=== PATIENT | male | born 1940 | race Two or more races ===

== ENCOUNTER → 2016-07-01 | Outpatient (CLI) | payer MEDICARE, OTHER ==
[~2016-07-01] MED LIST: IOHEXOL 350 MG/ML 100ML IJ ONE; SODIUM CHLORIDE 0.9% 1,000 ML IV ONE
[2016-07-01 10:15] VITALS: BP 138/77
[2016-07-01 11:34] LABS: BUN/Creatinine Ratio 26.7; Calcium 8.6 mg/dL (8.5-10.1); Potassium 4.9 mmol/L (3.5-5.1)
[2016-07-01 12:00] VITALS: BP 137/87
== END | disposition home or self-care (01) ==
LOC: Rad HDHVI 09:44
PROVIDERS: ATTEND Internal Medicine Cardiovascular Disease
DX: I10 Essential (primary) hypertension (principal); E11.9 Type 2 diabetes mellitus without complications
CPT/HCPCS: 36415; 74175; 80048; 83036; 96360; 96366; G0463

== ENCOUNTER → 2016-12-08 | Outpatient (CLI) | payer MEDICARE, OTHER ==
[2016-12-08 12:47] LABS: Albumin 3.4 g/dL (3.4-5.0); BUN/Creatinine Ratio 24.3; Bilirubin, Total 0.4 mg/dL (0.2-1.0); Calcium 9.2 mg/dL (8.5-10.1); Potassium 4.7 mmol/L (3.5-5.1); Total Protein 7.5 g/dL (6.4-8.2); Uric Acid 9.3 mg/dL (3.5-7.2)
== END | disposition home or self-care (01) ==
LOC: LAB 09:00
PROVIDERS: ATTEND Internal Medicine Cardiovascular Disease
DX: I10 Essential (primary) hypertension (principal); M10.9 Gout, unspecified
CPT/HCPCS: 36415; 80053; 84550

== ENCOUNTER → 2017-02-08 | Outpatient (CLI) | payer MEDICARE, OTHER | END | disposition home or self-care (01) | LOC: Rad HDHVI 08:45 | PROVIDERS: ATTEND Internal Medicine Cardiovascular Disease | DX: I42.9 Cardiomyopathy, unspecified (principal); I65.29 Occlusion and stenosis of unspecified carotid artery | CPT/HCPCS: 93306; 93880 ==

== ENCOUNTER → 2017-02-10 | Outpatient (CLI) | payer MEDICARE, OTHER ==
[~2017-02-10] VITALS: Ht 30.5 cm; Wt 0.5 kg
[~2017-02-10] MED LIST changes: +D5W 5% IV SCH; +DIPYRIDAMOLE (5MG/ML) 10 ML VIAL IV ONE; +DIPYRIDAMOLE IV SCH; -IOHEXOL 350 MG/ML 100ML IJ ONE; -SODIUM CHLORIDE 0.9% 1,000 ML IV ONE
[2017-02-10 12:20] LABS: Urine Bilirubin Negative (Negative); Urine Blood Negative /uL (Negative); Urine Color Yellow (Yellow); Urine Glucose Normal (Normal); Urine Ketone Negative (Negative); Urine Nitrite Negative (Negative); Urine Urobilinogen Normal (Negative)
[2017-02-10 12:22] LABS: Basophils # (auto) 0 uL; Basophils % (auto) 0.4 % (0.0-2.0); Eosinophils # (auto) 0.1 uL; Eosinophils % (auto) 0.9 % (0.0-7.0); Hematocrit 40.9 % (41.0-53.0); Lymphocytes # (auto) 1.3 uL; Lymphocytes % (auto) 16.8 % (10.0-50.0); Mean Corpuscular Hemoglobin 32.2 pg (28.0-32.0); Mean Corpuscular Hgb Conc. 34.3 g/dL (32.0-36.0); Mean Corpuscular Volume 93.9 fL (80.0-100.0); Mean Platelet Volume 8.3 fL (6.9-10.8); Monocytes # (auto) 0.7 uL; Monocytes % (auto) 8.8 % (0.0-12.0); Neutrophils # (auto) 5.5 uL; Neutrophils % (auto) 73.1 % (37.0-80.0); Nucleated Red Blood Cells % 0.1 %; Platelet Count (auto) 266 10^3/uL (140-450); Red Cell Distribution Width 15.2 % (11.8-14.3); White Blood Cell 7.5 10^3/uL (4.4-10.8)
[2017-02-10 12:50] LABS: Albumin 3.4 g/dL (3.4-5.0); BUN/Creatinine Ratio 23.3; Bilirubin, Total 0.5 mg/dL (0.2-1.0); Calcium 9.8 mg/dL (8.5-10.1); Potassium 4.4 mmol/L (3.5-5.1); Total Protein 7.3 g/dL (6.4-8.2)
[2017-02-12 14:06] LABS: Free Testosterone(Direct) 9.5 pg/mL (6.6-18.1)
== END | disposition home or self-care (01) ==
LOC: Rad HDHVI 08:14
PROVIDERS: ATTEND Internal Medicine Cardiovascular Disease
DX: I10 Essential (primary) hypertension (principal); E78.00 Pure hypercholesterolemia, unspecified; K74.1 Hepatic sclerosis; E11.9 Type 2 diabetes mellitus without complications; R97.20 Elevated prostate specific antigen [PSA]; R53.81 Other malaise; E03.9 Hypothyroidism, unspecified; D64.9 Anemia, unspecified; N39.0 Urinary tract infection, site not specified; E55.9 Vitamin D deficiency, unspecified
CPT/HCPCS: 36415; 78452; 80053; 80061; 81003; 82306; 82607; 83036; 84402; 84403; 84439; 84443; 85025; 93005; 96374; 96375; A9500; J1245

== ENCOUNTER → 2017-03-01 | Outpatient (CLI) | payer MEDICARE, OTHER | END | disposition home or self-care (01) | LOC: Rad HDHVI 09:28 | PROVIDERS: ATTEND Internal Medicine Cardiovascular Disease | DX: Z13.6 Encounter for screening for cardiovascular disorders (principal); I65.29 Occlusion and stenosis of unspecified carotid artery | CPT/HCPCS: 76775 ==

== ENCOUNTER → 2017-06-06 | Outpatient (CLI) | payer MEDICARE, OTHER ==
[~2017-06-06] MED LIST changes: +AMLO5TAB2 PO; +ASP81EC PO; +ATEN-60 PO; +ATOR40TA52 PO; -D5W 5% IV SCH; -DIPYRIDAMOLE (5MG/ML) 10 ML VIAL IV ONE; -DIPYRIDAMOLE IV SCH; +ENA10T PO; +FENO160T8 PO; +FURO20TA3 PO; +INSU100I2 SC; +LEVEMIR SC; +LIRA18IN2 SUBCUT
== END | disposition home or self-care (01) ==
LOC: Rad HDHVI 08:56
PROVIDERS: ATTEND Internal Medicine Cardiovascular Disease
DX: I65.21 Occlusion and stenosis of right carotid artery (principal); I10 Essential (primary) hypertension
CPT/HCPCS: 93880

== ENCOUNTER → 2017-10-17 | Outpatient (CLI) | payer MEDICARE, OTHER | END | disposition home or self-care (01) | LOC: Rad HDHVI 12:36 | PROVIDERS: ATTEND Internal Medicine Cardiovascular Disease | DX: I70.201 Unspecified atherosclerosis of native arteries of extremities, right leg (principal); I10 Essential (primary) hypertension; E78.5 Hyperlipidemia, unspecified; E11.9 Type 2 diabetes mellitus without complications; E03.9 Hypothyroidism, unspecified | CPT/HCPCS: 93880; 93926 ==

== ENCOUNTER → 2018-08-31 | Outpatient (CLI) | payer MEDICARE, BC ==
[~2018-08-31] MED LIST changes: +AMLO5TAB13 PO; -AMLO5TAB2 PO
== END | disposition home or self-care (01) ==
LOC: Rad HDHVI 09:40
PROVIDERS: ATTEND Internal Medicine Cardiovascular Disease
DX: I10 Essential (primary) hypertension (principal); R06.02 Shortness of breath
CPT/HCPCS: 93306

== ENCOUNTER → 2018-09-12 | Outpatient (CLI) | payer MEDICARE, BC ==
[~2018-09-12] VITALS: Ht 167.6 cm; Wt 104.3 kg
[~2018-09-12] MED LIST changes: +ADENOSINE 88 MG in GIVE UN-DILUTED 0 ML IV ONE; +ADENOSINE 90 MG/30 ML INJ IV ONE
[2018-09-12 12:21] LABS: Basophils # (auto) 0 uL; Basophils % (auto) 0.5 % (0.0-2.0); Eosinophils # (auto) 0.1 uL; Eosinophils % (auto) 1.2 % (0.0-7.0); Hematocrit 39.6 % (41.0-53.0); Hemoglobin 13.5 g/dL (13.5-17.5); Lymphocytes # (auto) 1.1 uL; Lymphocytes % (auto) 16.1 % (10.0-50.0); Mean Corpuscular Volume 94.3 fL (80.0-100.0); Monocytes # (auto) 0.6 uL; Monocytes % (auto) 8.8 % (0.0-12.0); Neutrophils # (auto) 5.1 uL; Neutrophils % (auto) 73.4 % (37.0-80.0); Platelet Count (auto) 283 10^3/uL (140-450); Red Blood Cells 4.21 10^6/uL (4.5-5.90); Red Cell Distribution Width 14.1 % (11.8-14.3); White Blood Cell 6.9 10^3/uL (4.4-10.8)
[2018-09-12 12:30] LABS: Albumin 3.2 g/dL (3.4-5.0); Calcium 8.8 mg/dL (8.5-10.1); Potassium 4.5 mmol/L (3.5-5.1)
[2018-09-12 12:34] LABS: BUN/Creatinine Ratio 20.5; Bilirubin, Total 0.3 mg/dL (0.2-1.0); Total Protein 7.5 g/dL (6.4-8.2)
[2018-09-12 12:40] LABS: Urine Blood Negative /uL (Negative)
[2018-09-12 13:00] LABS: Free T4 (Free Thyroxine) 1.1 ng/dL (0.89-1.76)
== END | disposition home or self-care (01) ==
LOC: Rad HDHVI 07:51
PROVIDERS: ATTEND Internal Medicine
DX: C61 Malignant neoplasm of prostate (principal); E78.5 Hyperlipidemia, unspecified; E03.9 Hypothyroidism, unspecified; E55.9 Vitamin D deficiency, unspecified; E11.9 Type 2 diabetes mellitus without complications; N39.0 Urinary tract infection, site not specified; D51.9 Vitamin B12 deficiency anemia, unspecified; K74.1 Hepatic sclerosis; D64.9 Anemia, unspecified; I10 Essential (primary) hypertension
CPT/HCPCS: 36415; 78452; 80053; 80061; 81003; 82306; 82607; 83036; 84153; 84403; 84439; 84443; 85025; 93005; 96374; 96375; A9500; J0153

== ENCOUNTER → 2018-10-22 | Outpatient (CLI) | payer MEDICARE, BC ==
[~2018-10-22] MED LIST changes: -ADENOSINE 88 MG in GIVE UN-DILUTED 0 ML IV ONE; -ADENOSINE 90 MG/30 ML INJ IV ONE; -AMLO5TAB13 PO; +AMLO5TAB15 PO; +CHOL100029 PO; -ENA10T PO; +ENAL10TA PO
[2018-10-22 09:15] VITALS: BP 141/78
[2018-10-22 09:45] VITALS: BP 140/75
--- NOTE | 2018-10-22 09:45 | NUR ---
Pre-Op Discharge Summary: See e-MAR for any medications given for this visit. Pre-op orders received and carried out per MD of EKG, LABS and prescription for chest xrays given to patient. Patient given a copy of EKG with instructions to go to [facility] out patient for further follow up care.
[2018-10-22 12:01] LABS: Basophils # (auto) 0.1 uL; Basophils % (auto) 1.5 % (0.0-2.0); Eosinophils # (auto) 0 uL; Hematocrit 39.3 % (41.0-53.0); Hemoglobin 13.3 g/dL (13.5-17.5); Lymphocytes % (auto) 19.7 % (10.0-50.0); Mean Corpuscular Hemoglobin 32.4 pg (28.0-32.0); Mean Corpuscular Hgb Conc. 33.8 g/dL (32.0-36.0); Monocytes # (auto) 0.7 uL; Monocytes % (auto) 14.3 % (0.0-12.0); Neutrophils # (auto) 3.1 uL; Neutrophils % (auto) 63.5 % (37.0-80.0); Platelet Count (auto) 319 10^3/uL (140-450); Red Blood Cells 4.09 10^6/uL (4.5-5.90); Red Cell Distribution Width 15.4 % (11.8-14.3); White Blood Cell 4.9 10^3/uL (4.4-10.8)
[2018-10-22 12:11] LABS: INR < 0.93 (0.9-1.15); Partial Thromboplastin Time 22.2 sec (23.64-32.05)
[2018-10-22 13:10] LABS: Potassium 4.8 mmol/L (3.5-5.1)
[2018-10-22 13:30] LABS: BUN/Creatinine Ratio 19.4; Calcium 9.3 mg/dL (8.5-10.1)
== END | disposition home or self-care (01) ==
LOC: Rad HDHVI 09:02
PROVIDERS: ATTEND Internal Medicine Cardiovascular Disease
DX: Z01.812 Encounter for preprocedural laboratory examination (principal); I12.9 Hypertensive chronic kidney disease with stage 1 through stage 4 chronic kidney disease, or unspecified chronic kidney disease; E11.22 Type 2 diabetes mellitus with diabetic chronic kidney disease; N18.3 Chronic kidney disease, stage 3 (moderate); I25.10 Atherosclerotic heart disease of native coronary artery without angina pectoris; D64.9 Anemia, unspecified; R79.1 Abnormal coagulation profile
CPT/HCPCS: 36415; 80048; 85025; 85610; 85730; 93005; G0463

== ENCOUNTER 2018-10-25 07:30 | Day surgery (SDC) | payer MEDICARE, BC ==
[~2018-10-25] VITALS: Ht 167.6 cm; Wt 104.3 kg
[~2018-10-25 07:30] MED LIST changes: +AMLO5TAB13 PO; -AMLO5TAB15 PO; +ENA10T PO; -ENAL10TA PO; -FURO20TA3 PO
[2018-10-25] MEDS ORDERED: LIDOCAINE 2%HCL (LOCAL ANESTH.) INJ 20ML MDV ONE ×2 (10:17→10:41)
[2018-10-25] MEDS ORDERED: ANGIOMAX 250 MG VIAL IV ONE (10:21)
[2018-10-25] MEDS ORDERED: fentaNYL CITRATE 100 MCG/2 ML VL ONE (10:21)
[2018-10-25] MEDS ORDERED: MIDAZOLAM HCL 1MG/1ML-2 ML VIAL ONE (10:22)
[2018-10-25] MEDS ORDERED: SODIUM CHL 0.9% 0 ML ONE (10:22)
[2018-10-25] MEDS ORDERED: IODIXANOL 320MG/ML 100ML BTL IV ONE (10:34)
== END 2018-10-25 13:05 | disposition home or self-care (01) ==
LOC: CATH 07:30
PROVIDERS: ATTEND Internal Medicine Cardiovascular Disease
DX: I25.10 Atherosclerotic heart disease of native coronary artery without angina pectoris (principal); R94.39 Abnormal result of other cardiovascular function study; J44.9 Chronic obstructive pulmonary disease, unspecified; I73.9 Peripheral vascular disease, unspecified; E11.40 Type 2 diabetes mellitus with diabetic neuropathy, unspecified; E11.21 Type 2 diabetes mellitus with diabetic nephropathy; E66.9 Obesity, unspecified; M19.90 Unspecified osteoarthritis, unspecified site; E11.22 Type 2 diabetes mellitus with diabetic chronic kidney disease; I12.9 Hypertensive chronic kidney disease with stage 1 through stage 4 chronic kidney disease, or unspecified chronic kidney disease; N18.3 Chronic kidney disease, stage 3 (moderate); Z68.37 Body mass index [BMI] 37.0-37.9, adult; Z79.4 Long term (current) use of insulin; Z79.82 Long term (current) use of aspirin; Z79.899 Other long term (current) drug therapy; Z87.891 Personal history of nicotine dependence; Z95.818 Presence of other cardiac implants and grafts; Z82.49 Family history of ischemic heart disease and other diseases of the circulatory system
CPT/HCPCS: 93005; 93458; C1760; C1894; J1644; J2250; J3010; J7030; Q9967; 36245; 99152

== ENCOUNTER → 2018-12-24 | Outpatient (CLI) | payer MEDICARE, BC ==
[~2018-12-24] MED LIST changes: -AMLO5TAB13 PO; +AMLO5TAB15 PO; -ENA10T PO; +ENAL10TA PO
[2018-12-24 12:05] LABS: Basophils # (auto) 0 uL; Basophils % (auto) 0.6 % (0.0-2.0); Eosinophils # (auto) 0.1 uL; Eosinophils % (auto) 1.5 % (0.0-7.0); Hematocrit 38.9 % (41.0-53.0); Hemoglobin 13.1 g/dL (13.5-17.5); Lymphocytes # (auto) 1.1 uL; Mean Corpuscular Hemoglobin 32.2 pg (28.0-32.0); Mean Corpuscular Hgb Conc. 33.7 g/dL (32.0-36.0); Mean Corpuscular Volume 95.6 fL (80.0-100.0); Monocytes # (auto) 0.6 uL; Monocytes % (auto) 8.8 % (0.0-12.0); Neutrophils # (auto) 4.8 uL; Neutrophils % (auto) 73.1 % (37.0-80.0); Platelet Count (auto) 343 10^3/uL (140-450); Red Blood Cells 4.07 10^6/uL (4.5-5.90); Red Cell Distribution Width 13.8 % (11.8-14.3); White Blood Cell 6.6 10^3/uL (4.4-10.8)
[2018-12-24 12:08] LABS: Urine Blood Negative /uL (Negative)
[2018-12-24 12:29] LABS: Albumin 3.2 g/dL (3.4-5.0); BUN/Creatinine Ratio 29.5; Calcium 9.5 mg/dL (8.5-10.1); Potassium 4.4 mmol/L (3.5-5.1)
[2018-12-24 12:32] LABS: Bilirubin, Total 0.3 mg/dL (0.2-1.0); Total Protein 8.3 g/dL (6.4-8.2)
[2018-12-24 13:06] LABS: Free T4 (Free Thyroxine) 1.17 ng/dL (0.89-1.76)
[2018-12-24 13:07] LABS: Prostate Specific Antigen 0.05 ng/mL (0.0-4.0)
== END | disposition home or self-care (01) ==
LOC: LAB 08:19
PROVIDERS: ATTEND Internal Medicine Cardiovascular Disease
DX: E03.9 Hypothyroidism, unspecified (principal); C61 Malignant neoplasm of prostate; E29.1 Testicular hypofunction; E11.65 Type 2 diabetes mellitus with hyperglycemia; E11.22 Type 2 diabetes mellitus with diabetic chronic kidney disease; N39.0 Urinary tract infection, site not specified; N18.3 Chronic kidney disease, stage 3 (moderate); D51.9 Vitamin B12 deficiency anemia, unspecified; Z79.899 Other long term (current) drug therapy
CPT/HCPCS: 36415; 80053; 80061; 81003; 82306; 82607; 83036; 84153; 84403; 84439; 84443; 85025

== ENCOUNTER → 2019-01-22 | Outpatient (CLI) | payer MEDICARE, BC | END | disposition home or self-care (01) | LOC: Rad HDHVI 09:09 | PROVIDERS: ATTEND Internal Medicine Cardiovascular Disease | DX: I25.119 Atherosclerotic heart disease of native coronary artery with unspecified angina pectoris (principal); R55 Syncope and collapse | CPT/HCPCS: 93880 ==

== ENCOUNTER → 2019-01-25 | Outpatient (CLI) | payer MEDICARE, BC | END | disposition home or self-care (01) | LOC: Rad HDHVI 10:33 | PROVIDERS: ATTEND Internal Medicine Cardiovascular Disease | DX: I67.2 Cerebral atherosclerosis (principal); R11.0 Nausea; R42 Dizziness and giddiness; I99.8 Other disorder of circulatory system | CPT/HCPCS: 70450 ==

== ENCOUNTER → 2019-01-29 | Outpatient (CLI) | payer MEDICARE, BC ==
[2019-01-29 16:12] LABS: Potassium 4.5 mmol/L (3.5-5.1)
[2019-01-29 16:28] LABS: Albumin 3.3 g/dL (3.4-5.0); BUN/Creatinine Ratio 23.2; Phosphorus 2.3 mg/dL (2.5-4.90); Protein, Urine 9.7 mg/dL (0.0-11.9); Uric Acid 11.1 mg/dL (3.5-7.2)
[2019-01-29 16:33] LABS: Urine Bacteria NONE SEEN /hpf (None Seen); Urine Blood Negative /uL (Negative); Urine Hyaline Cast FEW /lpf (0 - 2); Urine Specific Gravity 1.014 (1.001-1.035); Urine WBC 1 /hpf (0 - 3)
[2019-01-29 17:04] LABS: Basophils # (auto) 0 uL; Basophils % (auto) 0.5 % (0.0-2.0); Eosinophils # (auto) 0.1 uL; Eosinophils % (auto) 1.1 % (0.0-7.0); Hematocrit 40.3 % (41.0-53.0); Hemoglobin 13.3 g/dL (13.5-17.5); Lymphocytes % (auto) 13.3 % (10.0-50.0); Mean Corpuscular Hemoglobin 31.7 pg (28.0-32.0); Mean Corpuscular Volume 95.9 fL (80.0-100.0); Monocytes # (auto) 0.5 uL; Neutrophils # (auto) 6.1 uL; Neutrophils % (auto) 78.1 % (37.0-80.0); Nucleated Red Blood Cells % 0.1 %; Platelet Count (auto) 319 10^3/uL (140-450); Red Cell Distribution Width 14.4 % (11.8-14.3); White Blood Cell 7.8 10^3/uL (4.4-10.8)
== END | disposition home or self-care (01) ==
LOC: LAB 09:27
PROVIDERS: ATTEND Internal Medicine Cardiovascular Disease
DX: E79.0 Hyperuricemia without signs of inflammatory arthritis and tophaceous disease (principal); N18.3 Chronic kidney disease, stage 3 (moderate); E56.9 Vitamin deficiency, unspecified; E21.3 Hyperparathyroidism, unspecified; R80.9 Proteinuria, unspecified
CPT/HCPCS: 36415; 80069; 81001; 82306; 82570; 83970; 84156; 84550; 85025

== ENCOUNTER → 2019-05-28 | Outpatient (CLI) | payer MEDICARE, BC | END | disposition home or self-care (01) | LOC: Rad HDHVI 12:41 | PROVIDERS: ATTEND Internal Medicine Cardiovascular Disease | DX: I07.1 Rheumatic tricuspid insufficiency (principal); R00.2 Palpitations; R06.02 Shortness of breath; R42 Dizziness and giddiness | CPT/HCPCS: 93306 ==

== ENCOUNTER → 2019-09-26 | Outpatient (CLI) | payer MEDICARE, BC ==
[2019-09-26 12:03] LABS: Basophils # (auto) 0.1 10 ^3/uL (0-0.2); Basophils % (auto) 0.7 % (0.0-2.0); Eosinophils # (auto) 0.2 10 ^3/uL (0-0.8); Eosinophils % (auto) 2.1 % (0.0-7.0); Hematocrit 39.6 % (41.0-53.0); Hemoglobin 12.9 g/dL (13.5-17.5); Lymphocytes # (auto) 1.7 10 ^3/uL (0.4-5.4); Lymphocytes % (auto) 19.9 % (10.0-50.0); Mean Corpuscular Hemoglobin 29.9 pg (28.0-32.0); Mean Corpuscular Hgb Conc. 32.5 g/dL (32.0-36.0); Monocytes # (auto) 0.8 10 ^3/uL (0-1.3); Monocytes % (auto) 9.5 % (0.0-12.0); Neutrophils # (auto) 5.7 10 ^3/uL (1.6-8.6); Neutrophils % (auto) 67.8 % (37.0-80.0); Nucleated Red Blood Cells % 0.2 %; Platelet Count (auto) 391 10^3/uL (140-450); Red Blood Cells 4.31 10^6/uL (4.5-5.90); Red Cell Distribution Width 15.1 % (11.8-14.3); White Blood Cell 8.3 10^3/uL (4.4-10.8)
[2019-09-26 12:04] LABS: Urine Blood Negative /uL (Negative)
[2019-09-26 12:13] LABS: Albumin 3.3 g/dL (3.4-5.0)
[2019-09-26 12:16] LABS: Calcium 10.1 mg/dL (8.5-10.1); Phosphorus 3.5 mg/dL (2.5-4.90); Uric Acid 7.2 mg/dL (3.5-7.2)
[2019-09-26 12:25] LABS: Creatinine, Urine 30 mg/dL (30.0-125.0); Protein, Urine 14.6 mg/dL (0.0-11.9)
== END | disposition home or self-care (01) ==
LOC: LAB 07:52
PROVIDERS: ATTEND Internal Medicine Cardiovascular Disease
DX: N18.3 Chronic kidney disease, stage 3 (moderate) (principal); R80.9 Proteinuria, unspecified; E21.3 Hyperparathyroidism, unspecified; D63.1 Anemia in chronic kidney disease; E55.9 Vitamin D deficiency, unspecified; K90.9 Intestinal malabsorption, unspecified; M10.9 Gout, unspecified
CPT/HCPCS: 36415; 80069; 81003; 82306; 82570; 83970; 84156; 84550; 85025

== ENCOUNTER 2020-02-20 09:37 | Inpatient (IN) | payer MEDICARE, BC ==
[~2020-02-20] VITALS: Ht 167.6 cm; Wt 100.4 kg
[~2020-02-20 09:37] MED LIST changes: -ASP81EC PO; +ASPI-394 PO; -ENAL10TA PO; +ENAL10TA12 PO
[2020-02-20] MEDS ORDERED: amLODIPine BESYLATE 5 MG TAB PO ONE (10:00)
[2020-02-20] MEDS ORDERED: FUROSEMIDE 40 MG/4 ML VIAL IV ONE ×2 (10:00→13:30)
[2020-02-20 10:32] LABS: Basophils # (auto) 0 10 ^3/uL (0-0.2); Basophils % (auto) 0.5 % (0.0-2.0); Eosinophils # (auto) 0.1 10 ^3/uL (0-0.8); Eosinophils % (auto) 0.9 % (0.0-7.0); Hematocrit 41.3 % (41.0-53.0); Hemoglobin 13.9 g/dL (13.5-17.5); Lymphocytes # (auto) 0.8 10 ^3/uL (0.4-5.4); Lymphocytes % (auto) 11.1 % (10.0-50.0); Mean Corpuscular Hemoglobin 32.1 pg (28.0-32.0); Mean Corpuscular Hgb Conc. 33.6 g/dL (32.0-36.0); Mean Corpuscular Volume 95.5 fL (80.0-100.0); Monocytes # (auto) 0.9 10 ^3/uL (0-1.3); Monocytes % (auto) 11.5 % (0.0-12.0); Neutrophils # (auto) 5.7 10 ^3/uL (1.6-8.6); Platelet Count (auto) 293 10^3/uL (140-450); Red Blood Cells 4.32 10^6/uL (4.5-5.90); Red Cell Distribution Width 15.3 % (11.8-14.3); White Blood Cell 7.5 10^3/uL (4.4-10.8)
[2020-02-20 10:53] LABS: Albumin 3.1 g/dL (3.4-5.0); Anion Gap 8 (5-15); Blood Urea Nitrogen 26 mg/dL (7-18); Calcium 11.7 mg/dL (8.5-10.1); Carbon Dioxide 25 mmol/L (21-32); Chloride 103 mmol/L (98-107); Glucose 204 mg/dL (74-106); Potassium 4.1 mmol/L (3.5-5.1); Sodium 136 mmol/L (136-145)
[2020-02-20 10:58] LABS: Alanine Aminotransferase 29 U/L (16-61); Alkaline Phosphatase 45 U/L (45-117); Aspartate Aminotransferase 27 U/L (15-37); BUN/Creatinine Ratio 9.8; Bilirubin, Total 0.4 mg/dL (0.2-1.0); GFR African American 30 mL/min; GFR Non-African American 25 mL/min; Lactate Dehydrogenase 218 U/L (87-241); Total Protein 7.2 g/dL (6.4-8.2)
[2020-02-20 12:05] LABS: Urine Bacteria NONE SEEN /hpf (None Seen); Urine Blood TRACE /uL (Negative); Urine Specific Gravity 1.007 (1.001-1.035); Urine WBC 1 /hpf (0 - 3)
[2020-02-20] MEDS ORDERED: MORPHINE SULF INJ 2 MG/ML SYRINGE 1ML IV PRN ×2 (13:15→13:30)
[2020-02-20] MEDS ORDERED: NITROGLYCERIN 0.4 MG SL TAB SL PRN ×2 (13:15→13:30)
[2020-02-20] MEDS ORDERED: POTASSIUM CHL 20 Meq TABLET PO ONE (13:30)
[2020-02-20] MEDS ORDERED: DEXTROSE (50%) 50ML SYRG IV PRN (13:30)
[2020-02-20] MEDS ORDERED: ZOLP10TA6 PO (16:59)
[2020-02-20] MEDS ORDERED: DICL1GEL50 TOP (16:59)
[2020-02-20] MEDS ORDERED: ATEN-60 PO (16:59)
[2020-02-20] MEDS ORDERED: FURO1TAB33 PO (16:59)
[2020-02-20] MEDS ORDERED: CHOL135C10 OR (16:59)
[2020-02-20] MEDS ORDERED: PRED1SUS4 RIGHTEYE (16:59)
[2020-02-20] MEDS ORDERED: AMLO-483 PO (16:59)
[2020-02-20] MEDS ORDERED: LEVEMIR SC (16:59)
[2020-02-20] MEDS ORDERED: INSU100I49 SC (16:59)
[2020-02-20] MEDS ORDERED: INSULIN LISPRO (HUMAN) 100 UNITS/ML ML SC SCH (17:00)
[2020-02-20] MEDS: ACCU-CHEK COMFORT CURVE STRIP VI SCH ×3 (17:06→23:13)
[2020-02-20] MEDS: InsuLIN REG 1unit/0.01ml Soln (100units/ml) SC SCH ×3 (17:07→23:02)
[2020-02-20] MEDS: INSULIN LANTUS (GLARGINE) 1 /0.01ml (100units/ml) SC SCH (18:43)
[2020-02-20] MEDS ORDERED: LABETALOL HCL 5 MG/ML 4ML SYRINGE IV ONE (18:45)
[2020-02-20] MEDS ORDERED: hydrALAZINE HCL 25 MG TAB PO PRN (18:45)
[2020-02-20 22:00] VITALS: BP 103/54
[2020-02-20] MEDS: ATORVASTATIN 20 MG TAB PO SCH (23:01)
[2020-02-21] MEDS: ACCU-CHEK COMFORT CURVE STRIP VI SCH ×5 (03:47→20:00)
[2020-02-21] MEDS: InsuLIN REG 1unit/0.01ml Soln (100units/ml) SC SCH ×5 (03:47→22:38)
[2020-02-21 05:00] VITALS: BP 121/58
[2020-02-21 08:55] VITALS: BP 102/53
[2020-02-21] MEDS: INSULIN LANTUS (GLARGINE) 1 /0.01ml (100units/ml) SC SCH ×2 (09:18→18:41)
[2020-02-21] MEDS: LIRAGLUTIDE 18 MG/3 ML SC SCH (10:00)
[2020-02-21] MEDS: ENALAPRIL MALEATE 10 MG TAB PO SCH (10:00)
[2020-02-21] MEDS: amLODIPine BESYLATE 5 MG TAB PO SCH (10:00)
[2020-02-21] MEDS: FENOFIBRATE 135 MG PO SCH (10:00)
[2020-02-21 12:55] VITALS: BP 110/60
[2020-02-21] MEDS: ASPirin-EC 81 mg tab PO SCH (13:03)
[2020-02-21] MEDS: ATENOLOL 25 MG TAB PO SCH (13:05)
[2020-02-21] MEDS: CHOLECALCIFEROL (VITD3) 1,000UNIT=25mCg TAB PO SCH (13:06)
[2020-02-21] MEDS ORDERED: HYDROcodone-ACET 5/325MG TAB PO PRN (16:45)
[2020-02-21] MEDS ORDERED: HYDROmorphone HCL 2 MG/ML VL IV PRN (16:45)
[2020-02-21 16:50] VITALS: BP 103/64
[2020-02-21 22:20] VITALS: BP 116/62
[2020-02-21] MEDS: ATORVASTATIN 20 MG TAB PO SCH (22:36)
[2020-02-22] MEDS: ACCU-CHEK COMFORT CURVE STRIP VI SCH ×6 (04:14→20:59)
[2020-02-22] MEDS: InsuLIN REG 1unit/0.01ml Soln (100units/ml) SC SCH ×6 (04:15→21:16)
[2020-02-22 05:01] VITALS: BP 116/69
[2020-02-22 08:10] VITALS: BP 121/68
[2020-02-22 08:34] VITALS: BP 121/68
[2020-02-22] MEDS: INSULIN LANTUS (GLARGINE) 1 /0.01ml (100units/ml) SC SCH ×2 (09:02→18:31)
[2020-02-22] MEDS: CHOLECALCIFEROL (VITD3) 1,000UNIT=25mCg TAB PO SCH (09:05)
[2020-02-22] MEDS: ENALAPRIL MALEATE 10 MG TAB PO SCH (09:06)
[2020-02-22] MEDS: ATENOLOL 25 MG TAB PO SCH (09:06)
[2020-02-22] MEDS: amLODIPine BESYLATE 5 MG TAB PO SCH (09:07)
[2020-02-22] MEDS: ASPirin-EC 81 mg tab PO SCH (09:07)
[2020-02-22] MEDS: LIRAGLUTIDE 18 MG/3 ML SC SCH (09:08)
[2020-02-22] MEDS: FENOFIBRATE 135 MG PO SCH (09:08)
[2020-02-22 12:26] VITALS: BP 96/59
[2020-02-22 16:27] VITALS: BP 108/49
[2020-02-22] MEDS: ATORVASTATIN 20 MG TAB PO SCH (21:00)
[2020-02-22 22:31] VITALS: BP 117/56
[2020-02-23] MEDS: InsuLIN REG 1unit/0.01ml Soln (100units/ml) SC SCH ×6 (00:30→21:28)
[2020-02-23] MEDS: ACCU-CHEK COMFORT CURVE STRIP VI SCH ×6 (00:30→20:00)
[2020-02-23 05:05] VITALS: BP 100/54
[2020-02-23] MEDS: INSULIN LANTUS (GLARGINE) 1 /0.01ml (100units/ml) SC SCH ×2 (08:52→17:35)
[2020-02-23 09:22] VITALS: BP 112/56
[2020-02-23] MEDS: LIRAGLUTIDE 18 MG/3 ML SC SCH (10:00)
[2020-02-23] MEDS: FENOFIBRATE 135 MG PO SCH (10:00)
[2020-02-23] MEDS: ASPirin-EC 81 mg tab PO SCH (10:04)
[2020-02-23] MEDS: amLODIPine BESYLATE 5 MG TAB PO SCH (10:04)
[2020-02-23] MEDS: ATENOLOL 25 MG TAB PO SCH (10:05)
[2020-02-23] MEDS: CHOLECALCIFEROL (VITD3) 1,000UNIT=25mCg TAB PO SCH (10:05)
[2020-02-23] MEDS: ENALAPRIL MALEATE 10 MG TAB PO SCH (10:05)
[2020-02-23 12:57] VITALS: BP 106/57
[2020-02-23 16:31] VITALS: BP 128/67
[2020-02-23] MEDS: ATORVASTATIN 20 MG TAB PO SCH (21:29)
[2020-02-23 22:55] VITALS: BP 118/60
[2020-02-24] MEDS: InsuLIN REG 1unit/0.01ml Soln (100units/ml) SC SCH ×4 (00:30→12:00)
[2020-02-24] MEDS: ACCU-CHEK COMFORT CURVE STRIP VI SCH ×4 (00:30→12:29)
[2020-02-24 05:07] VITALS: BP 105/56
[2020-02-24 09:00] VITALS: BP 101/67
[2020-02-24] MEDS: CHOLECALCIFEROL (VITD3) 1,000UNIT=25mCg TAB PO SCH (09:08)
[2020-02-24] MEDS: ASPirin-EC 81 mg tab PO SCH (09:08)
[2020-02-24] MEDS: INSULIN LANTUS (GLARGINE) 1 /0.01ml (100units/ml) SC SCH (09:35)
[2020-02-24] MEDS: FENOFIBRATE 135 MG PO SCH (09:53)
[2020-02-24] MEDS: ENALAPRIL MALEATE 10 MG TAB PO SCH (10:00)
[2020-02-24] MEDS: LIRAGLUTIDE 18 MG/3 ML SC SCH (10:00)
[2020-02-24] MEDS: ATENOLOL 25 MG TAB PO SCH (10:00)
[2020-02-24] MEDS: amLODIPine BESYLATE 5 MG TAB PO SCH (10:00)
[2020-02-24 12:53] VITALS: BP 102/56
[2020-02-24 17:00] VITALS: BP 119/70
[2020-02-24 17:20] VITALS: BP 101/67
== END 2020-02-24 18:06 | disposition home or self-care (01) | DRG 70 ==
LOC: EDBD 09:37 → ER 09:37 → TELE 09:38 → TELE-EAST 17:52 → TELE-WESTW 02-21 03:10
PROVIDERS: ADMIT Hospitalist; ATTEND Internal Medicine Cardiovascular Disease
DX: G93.41 Metabolic encephalopathy (principal); I63.9 Cerebral infarction, unspecified; I16.1 Hypertensive emergency; I13.0 Hypertensive heart and chronic kidney disease with heart failure and stage 1 through stage 4 chronic kidney disease, or unspecified chronic kidney disease; N17.9 Acute kidney failure, unspecified; E86.9 Volume depletion, unspecified; R06.03 Acute respiratory distress; N18.9 Chronic kidney disease, unspecified; I25.10 Atherosclerotic heart disease of native coronary artery without angina pectoris; E11.40 Type 2 diabetes mellitus with diabetic neuropathy, unspecified; E11.22 Type 2 diabetes mellitus with diabetic chronic kidney disease; E11.42 Type 2 diabetes mellitus with diabetic polyneuropathy; E66.9 Obesity, unspecified; R29.6 Repeated falls; Z20.828 Contact with and (suspected) exposure to other viral communicable diseases; Z91.81 History of falling; I50.9 Heart failure, unspecified; Z79.4 Long term (current) use of insulin; Z68.36 Body mass index [BMI] 36.0-36.9, adult
CPT/HCPCS: 36415; 70450; 71045; 80053; 81001; 82728; 82962; 83615; 83880; 84484; 85025; 87040; 87426; 93005; 96372; 96374; 96375; 99291; G0378; J1815; J3490

== ENCOUNTER 2020-03-03 15:52 | Inpatient (IN) | payer MEDICARE, BC ==
[~2020-03-03] VITALS: Ht 167.6 cm; Wt 96.6 kg
[~2020-03-03 15:52] MED LIST changes: +AMLO-483 PO; -AMLO5TAB15 PO; +CHOL135C10 OR; +DICL1GEL50 TOP; -FENO160T8 PO; +FURO1TAB33 PO; -INSU100I2 SC; +INSU100I49 SC; +PRED1SUS4 RIGHTEYE; +ZOLP10TA6 PO
[2020-03-03] MEDS ORDERED: LIDOCAINE W/ EPINEPHRINE 2% INJ 20ML VIAL ID ONE (17:00)
[2020-03-03 19:17] LABS: Basophils # (auto) 0 10 ^3/uL (0-0.2); Basophils % (auto) 0.4 % (0.0-2.0); Eosinophils # (auto) 0.1 10 ^3/uL (0-0.8); Eosinophils % (auto) 0.8 % (0.0-7.0); Hematocrit 47.2 % (41.0-53.0); Hemoglobin 15.5 g/dL (13.5-17.5); Lymphocytes # (auto) 1.1 10 ^3/uL (0.4-5.4); Lymphocytes % (auto) 9.4 % (10.0-50.0); Mean Corpuscular Hemoglobin 30.6 pg (28.0-32.0); Mean Corpuscular Hgb Conc. 32.7 g/dL (32.0-36.0); Mean Corpuscular Volume 93.5 fL (80.0-100.0); Monocytes # (auto) 1.1 10 ^3/uL (0-1.3); Neutrophils # (auto) 9.7 10 ^3/uL (1.6-8.6); Neutrophils % (auto) 80.4 % (37.0-80.0); Platelet Count (auto) 378 10^3/uL (140-450); Red Blood Cells 5.05 10^6/uL (4.5-5.90)
[2020-03-03 19:30] LABS: Partial Thromboplastin Time 26.6 sec (23.0-31.2)
[2020-03-03 19:37] LABS: Albumin 3.8 g/dL (3.4-5.0); Anion Gap 8 (5-15); Blood Urea Nitrogen 68 mg/dL (7-18); Calcium 11.8 mg/dL (8.5-10.1); Carbon Dioxide 26 mmol/L (21-32); Chloride 97 mmol/L (98-107); Glucose 184 mg/dL (74-106); Magnesium 2.2 mg/dL (1.6-2.6); Potassium 4.5 mmol/L (3.5-5.1); Sodium 131 mmol/L (136-145)
[2020-03-03 19:42] LABS: Alanine Aminotransferase 26 U/L (16-61); Alkaline Phosphatase 51 U/L (45-117); Aspartate Aminotransferase 18 U/L (15-37); BUN/Creatinine Ratio 21.7; Bilirubin, Total 0.5 mg/dL (0.2-1.0); GFR African American 25 mL/min; GFR Non-African American 20 mL/min; Total Protein 8.7 g/dL (6.4-8.2)
[2020-03-03 23:45] VITALS: BP 142/72
--- NOTE | 2020-03-03 23:45 | NUR ---
Patient Brought to Unit Via Wheelchair Assumed patient care from FUNCTIONAL DIRECTOR. Report was given from FUNCTIONAL DIRECTOR. Patient is AOx4 and has no s/s of distress or SOB. Patient has no complaints of pain and is sitting comfortably in bed. POC discussed with patient, patient verbally agreed to understanding. Patient bed locked in lowest position and call light within reach. Will continue to monitor.
[2020-03-04 05:00] VITALS: BP 127/73
[2020-03-04] MEDS: INSULIN LISPRO (HUMAN) 100 UNITS/ML ML SC SCH ×3 (06:21→21:32)
[2020-03-04] MEDS: INSULIN LANTUS (GLARGINE) 1 /0.01ml (100units/ml) SC SCH ×2 (07:05→21:49)
--- NOTE | 2020-03-04 07:20 | NUR ---
Assumed care Patient in bed AOx4, noticed to be hard of hearing. No s/s of distress noted at this time. Patient denies pain. Patient helped to restroom. Patient ambulated independently gait steady. Update provided regarding POC and instructions to call for assistance as needed, patient verbalized understanding. bed in lowest, locked position, call light within reach, siderails x2 up. Will continue care.
[2020-03-04 08:57] VITALS: BP 124/69
[2020-03-04] MEDS: CHOLECALCIFEROL (VITD3) 1,000UNIT=25mCg TAB PO SCH (10:06)
[2020-03-04] MEDS: ASPirin 81 mg TAB PO SCH (10:06)
[2020-03-04] MEDS: ALLOPURINOL 300 MG TAB PO SCH (10:07)
[2020-03-04] MEDS: ATENOLOL 25 MG TAB PO SCH (10:07)
[2020-03-04] MEDS: FUROSEMIDE 40 MG TAB PO SCH (10:07)
--- NOTE | 2020-03-04 11:10 | NUR ---
WOUND CARE NOTE: IN TO SEE PATIENT AT THIS TIME PER WOUND CARE CONSULT REQUEST. PATIENT ADMITTED TO [facility] WITH DIAGNOSIS OF FACIAL/HEAD TRAUMA. CURRENT BUDDY SCORE IS 18. WOUND PHOTOS TAKEN UPON ADMIT BY BEDSIDE NURSE FOR REFERENCE. PATIENT STATES THAT HE BECAME DIZZY AND FELL AT HOME, HITTING A DRESSER IN HIS BEDROOM. HE WAS RENDERED WITH A LACERATION TO THE FOREHEAD, ECCHYMOSIS TO LEFT PERIORBITAL EYE, ABRASION TO BRIDGE OF NOSE. LACERATION HAS BEEN SUTURED CLOSED IN THER ER. WOUND IS WELL APPROXIMATED, NO DRAINAGE NOTED. SUTURES INTACT. ABRASION TO BRIDGE OF NOSE IS SCABBED CLOSED, ECCHYMOSIS TO PERIORBITAL AREA HAS INTACT SKIN. NO NEED FOR DRESSINGS NEEDED AT THIS TIME. ALL WOUNDS LEFT OPEN TO AIR. PATIENT CAN SELF TURN/REPOSITION SELF, HE REMAINS AMBULATORY. SKIN/WOUND CARE PLAN IMPLEMENTED AT THIS TIME. NO FURTHER WOUND CARE MONITORING NEEDED AT THIS TIME. Addendum: 03/04/20 at 1616 by Shirin Alvares RN Amended: Links added.
[2020-03-04 13:00] VITALS: BP 124/73
--- NOTE | 2020-03-04 16:15 | NUR ---
Patient requesting to be DC Patient requesting to be discharged. Per patient admitting MD informed him he would be kept overnight for monitoring and released in the morning of 03/04/20. Patient is awaiting for MD to round. MD paged at this time.
[2020-03-04 16:50] VITALS: BP 125/68
--- NOTE | 2020-03-04 19:20 | NUR ---
Opening Shift Note Patient is currently resting with eyes closed. Respirations are even and non-labored at 14 per min. Patient bed locked in lowest position and HOB at 40 degrees. No signs of distress or SOB, and no pain noted. Will continue to monitor.
[2020-03-04 22:26] VITALS: BP 135/69
[2020-03-05 05:18] VITALS: BP 151/72
[2020-03-05] MEDS: INSULIN LISPRO (HUMAN) 100 UNITS/ML ML SC SCH (06:00)
[2020-03-05] MEDS: INSULIN LANTUS (GLARGINE) 1 /0.01ml (100units/ml) SC SCH (06:36)
--- NOTE | 2020-03-05 06:38 | NUR ---
Patient Blood Glucose 61 Patient given an orange juice and cranberry juice. Patient feels better after having a juice. Will pass on to day shift RN about insulin and glucose check.
--- NOTE | 2020-03-05 06:59 | NUR ---
Glucose re-check 82
--- NOTE | 2020-03-05 07:30 | NUR ---
Opening Shift Note Assumed care of patient, awake and alert. No S/S of distress/SOB or pain. Instructed on POC and to call for assist PRN, will continue to monitor for changes Q1hr and PRN.
[2020-03-05 09:00] VITALS: BP 125/69
[2020-03-05] MEDS: ASPirin 81 mg TAB PO SCH (10:48)
[2020-03-05] MEDS: FUROSEMIDE 40 MG TAB PO SCH (10:49)
[2020-03-05] MEDS: ALLOPURINOL 300 MG TAB PO SCH (10:50)
[2020-03-05] MEDS: ATENOLOL 25 MG TAB PO SCH (10:50)
[2020-03-05] MEDS: CHOLECALCIFEROL (VITD3) 1,000UNIT=25mCg TAB PO SCH (10:50)
[2020-03-05 13:33] VITALS: BP 125/69
--- NOTE | 2020-03-05 15:10 | NUR ---
Discharge instructions given as ordered. Encourage to follow up with PMD as instructed. All questions and concerns addressed. Patient verbalized understanding. Medication reconciliation form completed and copy given to patient. Home medications held in Pharmacy returned to patient, and needed vaccines given. IV removed with catheter intact, pressure dressing applied Patient taken to vehicle via wheelchair with all personal belongings, accompanied by staff and family member. No distress noted at time of departure.
--- NOTE | 2020-03-05 15:14 | NUR ---
Assessment Patient is an 79-year-old male who is alert and oriented. Prior to admission patient lived home with his Amaris and functioned independently. Per patient he can care for his own ADL's. Per patient he has a cane, walker ans electric scooter for home use. Per patient he will return home to his prior living arrangements post discharge and family will transport him home. Advised patient there is a social service consult for home health with [facility]. Patient states he is on service with [employer] [facility] and would like to resume service with agency. Informed patient he has the right to participate in all discharge planning. Patient verbalized understanding and agreed to discharge plan. Faxed clinical information to [employer]. per Dahlia with agency they will resume care for patient within 24-48hrs upon d/c day. Addendum: 03/05/20 at 1517 by ANNAMARIE EMERY Amended: Links added.
== END 2020-03-05 15:00 | disposition home health service (06) | DRG 579 ==
LOC: ER 15:52 → OVERFLOW 15:53 → WEST WING 23:45
PROVIDERS: ADMIT Internal Medicine Cardiovascular Disease; ATTEND Internal Medicine Cardiovascular Disease
PROC: 0JQ10ZZ Repair Face Subcutaneous Tissue and Fascia, Open Approach (ICD-10-PCS; principal; 2020-03-03)
DX: S01.81XA Laceration without foreign body of other part of head, initial encounter (principal); G93.41 Metabolic encephalopathy; E87.1 Hypo-osmolality and hyponatremia; I13.0 Hypertensive heart and chronic kidney disease with heart failure and stage 1 through stage 4 chronic kidney disease, or unspecified chronic kidney disease; E11.22 Type 2 diabetes mellitus with diabetic chronic kidney disease; E66.9 Obesity, unspecified; I25.10 Atherosclerotic heart disease of native coronary artery without angina pectoris; N18.9 Chronic kidney disease, unspecified; W18.30XA Fall on same level, unspecified, initial encounter; I50.9 Heart failure, unspecified; Z68.34 Body mass index [BMI] 34.0-34.9, adult; Y93.89 Activity, other specified; Y92.89 Other specified places as the place of occurrence of the external cause; Y99.0 Civilian activity done for income or pay; E11.40 Type 2 diabetes mellitus with diabetic neuropathy, unspecified; Z86.73 Personal history of transient ischemic attack (TIA), and cerebral infarction without residual deficits
CPT/HCPCS: 12051; 36415; 70450; 71045; 80053; 82962; 83735; 83880; 84443; 84484; 85025; 85379; 85610; 85730; 87081; 93005; 97530; G0378; J1815

== ENCOUNTER → 2020-03-18 | Outpatient (CLI) | payer MEDICARE, BC ==
[~2020-03-18] MED LIST changes: -ATOR40TA52 PO; -ENAL10TA12 PO
[2020-03-18 15:56] LABS: Basophils # (auto) 0 10 ^3/uL (0-0.2); Basophils % (auto) 0.5 % (0.0-2.0); Eosinophils # (auto) 0.1 10 ^3/uL (0-0.8); Eosinophils % (auto) 1.8 % (0.0-7.0); Hematocrit 39.9 % (41.0-53.0); Hemoglobin 13.3 g/dL (13.5-17.5); Lymphocytes # (auto) 1.3 10 ^3/uL (0.4-5.4); Lymphocytes % (auto) 15.4 % (10.0-50.0); Mean Corpuscular Hgb Conc. 33.2 g/dL (32.0-36.0); Mean Corpuscular Volume 93.2 fL (80.0-100.0); Monocytes # (auto) 0.9 10 ^3/uL (0-1.3); Monocytes % (auto) 11.4 % (0.0-12.0); Neutrophils # (auto) 5.9 10 ^3/uL (1.6-8.6); Neutrophils % (auto) 70.9 % (37.0-80.0); Nucleated Red Blood Cells % 0.4 %; Platelet Count (auto) 319 10^3/uL (140-450); Red Blood Cells 4.28 10^6/uL (4.5-5.90); Red Cell Distribution Width 14.9 % (11.8-14.3); White Blood Cell 8.3 10^3/uL (4.4-10.8)
[2020-03-18 16:03] LABS: BUN/Creatinine Ratio 16.1; Calcium 11.8 mg/dL (8.5-10.1); Potassium 4.6 mmol/L (3.5-5.1)
== END | disposition home or self-care (01) ==
LOC: LAB 11:16
PROVIDERS: ATTEND Internal Medicine Cardiovascular Disease
DX: I11.0 Hypertensive heart disease with heart failure (principal); I50.23 Acute on chronic systolic (congestive) heart failure; D64.9 Anemia, unspecified
CPT/HCPCS: 36415; 80048; 83880; 85025

== ENCOUNTER → 2020-08-27 | Outpatient (CLI) | payer MEDICARE, BC ==
[2020-08-27 09:38] VITALS: BP 137/81
[2020-08-27 10:02] VITALS: BP 139/82
[2020-08-27 12:08] LABS: Basophils # (auto) 0.1 10 ^3/uL (0-0.2); Basophils % (auto) 0.9 % (0.0-2.0); Eosinophils # (auto) 0.2 10 ^3/uL (0-0.8); Eosinophils % (auto) 2.6 % (0.0-7.0); Hematocrit 39.9 % (41.0-53.0); Hemoglobin 13.6 g/dL (13.5-17.5); Lymphocytes % (auto) 23.3 % (10.0-50.0); Mean Corpuscular Hemoglobin 32.6 pg (28.0-32.0); Mean Corpuscular Volume 95.9 fL (80.0-100.0); Monocytes # (auto) 1.1 10 ^3/uL (0-1.3); Monocytes % (auto) 12.5 % (0.0-12.0); Neutrophils # (auto) 5.2 10 ^3/uL (1.6-8.6); Neutrophils % (auto) 60.7 % (37.0-80.0); Nucleated Red Blood Cells % 0.1 %; Platelet Count (auto) 335 10^3/uL (140-450); Red Blood Cells 4.17 10^6/uL (4.5-5.90); Red Cell Distribution Width 15.3 % (11.8-14.3); White Blood Cell 8.6 10^3/uL (4.4-10.8)
[2020-08-27 12:23] LABS: INR 0.97 (0.9-1.15); Partial Thromboplastin Time 26.2 sec (23.0-31.2)
[2020-08-27 12:37] LABS: Potassium 4.6 mmol/L (3.5-5.1)
[2020-08-27 12:44] LABS: BUN/Creatinine Ratio 20.5; Calcium 10.1 mg/dL (8.5-10.1)
== END | disposition home or self-care (01) ==
LOC: LAB 09:26
PROVIDERS: ATTEND Internal Medicine Cardiovascular Disease
DX: Z01.812 Encounter for preprocedural laboratory examination (principal); I51.7 Cardiomegaly; R94.31 Abnormal electrocardiogram [ECG] [EKG]; I50.23 Acute on chronic systolic (congestive) heart failure
CPT/HCPCS: 36415; 80048; 85025; 85610; 85730; 93005; G0463

== ENCOUNTER → 2020-11-03 | Outpatient (CLI) | payer MEDICARE, BC ==
[~2020-11-03] VITALS: Ht 167.6 cm; Wt 99.8 kg
[~2020-11-03] MED LIST changes: +ADENOSINE 84 MG in GIVE UN-DILUTED 0 ML IV ONE; +ADENOSINE 90 MG/30 ML INJ IV ONE
== END | disposition home or self-care (01) ==
LOC: Rad HDHVI 08:45
PROVIDERS: ATTEND Internal Medicine Cardiovascular Disease
DX: I25.10 Atherosclerotic heart disease of native coronary artery without angina pectoris (principal); I10 Essential (primary) hypertension; E11.65 Type 2 diabetes mellitus with hyperglycemia; E11.42 Type 2 diabetes mellitus with diabetic polyneuropathy; E78.5 Hyperlipidemia, unspecified
CPT/HCPCS: 78452; 93005; 96374; 96375; A9500; J0153

== ENCOUNTER → 2020-12-14 | Outpatient (CLI) | payer MEDICARE, BC ==
[~2020-12-14] MED LIST changes: -ADENOSINE 84 MG in GIVE UN-DILUTED 0 ML IV ONE; -ADENOSINE 90 MG/30 ML INJ IV ONE; +ALLO300T2 PO; +INSUINJ18 SC; +OMEG100078 PO
[2020-12-14 12:10] VITALS: BP 176/88
[2020-12-14 12:52] VITALS: BP 169/93
== END | disposition home or self-care (01) ==
LOC: CHF HDHVI 12:41
PROVIDERS: ATTEND Internal Medicine Cardiovascular Disease
DX: I10 Essential (primary) hypertension (principal)
CPT/HCPCS: 94618; G0463

== ENCOUNTER 2020-12-16 17:09 | Inpatient (IN) | payer MEDICARE, OTHER ==
[~2020-12-16] VITALS: Ht 172.7 cm; Wt 117.1 kg
[~2020-12-16 17:09] MED LIST changes: -ALLO300T2 PO; -INSUINJ18 SC; -OMEG100078 PO
[2020-12-16 18:10] LABS: Basophils # (auto) 0.2 10 ^3/uL (0-0.2); Basophils % (auto) 1.4 % (0.0-2.0); Eosinophils # (auto) 0.1 10 ^3/uL (0-0.8); Eosinophils % (auto) 0.7 % (0.0-7.0); Hematocrit 40.2 % (41.0-53.0); Hemoglobin 13.8 g/dL (13.5-17.5); Lymphocytes # (auto) 0.8 10 ^3/uL (0.4-5.4); Lymphocytes % (auto) 6.6 % (10.0-50.0); Mean Corpuscular Hemoglobin 32.9 pg (28.0-32.0); Mean Corpuscular Hgb Conc. 34.2 g/dL (32.0-36.0); Mean Corpuscular Volume 96.1 fL (80.0-100.0); Monocytes # (auto) 1.2 10 ^3/uL (0-1.3); Monocytes % (auto) 10.4 % (0.0-12.0); Neutrophils # (auto) 9.6 10 ^3/uL (1.6-8.6); Neutrophils % (auto) 80.9 % (37.0-80.0); Nucleated Red Blood Cells % 0.3 %; Red Blood Cells 4.19 10^6/uL (4.5-5.90); Red Cell Distribution Width 15.6 % (11.8-14.3); White Blood Cell 11.8 10^3/uL (4.4-10.8)
[2020-12-16 18:21] LABS: Albumin 2.8 g/dL (3.4-5.0); Anion Gap 8 (5-15); Blood Urea Nitrogen 34 mg/dL (7-18); Calcium 9.1 mg/dL (8.5-10.1); Carbon Dioxide 23 mmol/L (21-32); Chloride 104 mmol/L (98-107); Glucose 80 mg/dL (74-106); Potassium 4.1 mmol/L (3.5-5.1); Sodium 135 mmol/L (136-145)
[2020-12-16 18:27] LABS: Alanine Aminotransferase 22 U/L (16-61); Alkaline Phosphatase 54 U/L (45-117); Aspartate Aminotransferase 23 U/L (15-37); BUN/Creatinine Ratio 14.2; Bilirubin, Total 0.5 mg/dL (0.2-1.0); GFR African American 34 mL/min; GFR Non-African American 28 mL/min; Total Protein 7.9 g/dL (6.4-8.2)
[2020-12-16] MEDS ORDERED: cefTRIAXone 1GM/50ML D5W 50 ML IV ONE (19:15)
[2020-12-16] MEDS ORDERED: AZITHROMYCIN 500MG/ 250ML 250 ML IV ONE (20:00)
[2020-12-16] MEDS ORDERED: ONDANSETRON HCL 4 MG/2 ML VIAL ONE (21:50)
[2020-12-16] MEDS ORDERED: ONDANSETRON HCL 4 MG/2 ML VIAL IV ONE (21:55)
[2020-12-16] MEDS ORDERED: ONDANSETRON HCL 4 MG/2 ML VIAL IV PRN (22:00)
[2020-12-16] MEDS ORDERED: DEXTROSE (50%) 50ML SYRG IV PRN (22:00)
[2020-12-16] MEDS ORDERED: DOCUSATE SOD 100 MG CAP PO PRN (22:00)
[2020-12-16] MEDS ORDERED: MORPHINE SULFATE INJECTION 2 MG/ML SYRG IV PRN (22:00)
[2020-12-16] MEDS ORDERED: HYDROcodone-ACET 5/325MG TAB PO PRN (22:00)
[2020-12-16] MEDS ORDERED: ACETAMINOPHEN 325 MG TAB PO PRN (22:00)
[2020-12-16] MEDS ORDERED: NITROGLYCERIN 0.4 MG SL TAB SL PRN (22:00)
[2020-12-16] MEDS: ATORVASTATIN 20 MG TAB PO SCH (23:39)
[2020-12-16] MEDS: INSULIN LANTUS (GLARGINE) 1 /0.01ml (100units/ml) SC SCH (23:40)
[2020-12-16] MEDS: ACCU-CHEK COMFORT CURVE STRIP VI SCH (23:40)
[2020-12-16] MEDS: InsuLIN REG 1unit/0.01ml Soln (100units/ml) SC SCH (23:41)
[2020-12-17] MEDS ORDERED: ASPirin 325 MG TAB PO ONE (03:15)
[2020-12-17] MEDS ORDERED: FUROSEMIDE 20 MG/2 ML VIAL IV ONE (03:30)
[2020-12-17] MEDS: InsuLIN REG 1unit/0.01ml Soln (100units/ml) SC SCH ×3 (06:00→17:39)
[2020-12-17 06:29] VITALS: BP 106/56
[2020-12-17] MEDS: ACCU-CHEK COMFORT CURVE STRIP VI SCH ×3 (06:34→17:39)
[2020-12-17] MEDS: INSULIN LANTUS (GLARGINE) 1 /0.01ml (100units/ml) SC SCH ×2 (06:35→21:51)
[2020-12-17] MEDS ORDERED: OMEG100078 PO (07:00)
[2020-12-17] MEDS ORDERED: ALLO300T2 PO (07:00)
[2020-12-17] MEDS ORDERED: INSUINJ18 SC ×2 (07:02→07:03)
[2020-12-17 08:29] LABS: Basophils # (auto) 0 10 ^3/uL (0-0.2); Basophils % (auto) 0.4 % (0.0-2.0); Eosinophils # (auto) 0.1 10 ^3/uL (0-0.8); Eosinophils % (auto) 0.6 % (0.0-7.0); Hematocrit 36.8 % (41.0-53.0); Hemoglobin 12.7 g/dL (13.5-17.5); Lymphocytes # (auto) 0.6 10 ^3/uL (0.4-5.4); Lymphocytes % (auto) 6.6 % (10.0-50.0); Mean Corpuscular Hemoglobin 33.1 pg (28.0-32.0); Mean Corpuscular Hgb Conc. 34.4 g/dL (32.0-36.0); Mean Corpuscular Volume 96.3 fL (80.0-100.0); Monocytes % (auto) 10.4 % (0.0-12.0); Neutrophils # (auto) 7.7 10 ^3/uL (1.6-8.6); Red Blood Cells 3.82 10^6/uL (4.5-5.90); Red Cell Distribution Width 15.5 % (11.8-14.3); White Blood Cell 9.4 10^3/uL (4.4-10.8)
[2020-12-17 08:48] LABS: BUN/Creatinine Ratio 15.2; Calcium 8.9 mg/dL (8.5-10.1); Potassium 4.9 mmol/L (3.5-5.1)
[2020-12-17 09:00] VITALS: BP 133/82
[2020-12-17] MEDS ORDERED: FUROSEMIDE 20 MG/2 ML VIAL IV SCH (10:00)
[2020-12-17] MEDS: ASPirin 81 mg TAB PO SCH (10:22)
[2020-12-17] MEDS: ENOXAPARIN SOD 30 MG/0.3 ML SYRINGE SC SCH (10:22)
[2020-12-17] MEDS: ATENOLOL 25 MG TAB PO SCH (10:22)
[2020-12-17] MEDS ORDERED: DEXTROSE (50%) 50ML SYRG IV PRN (11:45)
[2020-12-17] MEDS ORDERED: cefTRIAXone 1GM/50ML D5W 50 ML IV ONE (11:45)
[2020-12-17] MEDS ORDERED: AZITHROMYCIN 250 MG TAB PO ONE (11:45)
[2020-12-17] MEDS ORDERED: ACCU-CHEK COMFORT CURVE STRIP VI SCH (12:00)
[2020-12-17 13:00] VITALS: BP 134/73
[2020-12-17 16:39] VITALS: BP 107/69
[2020-12-17] MEDS: FUROSEMIDE 40 MG/4 ML VIAL IV SCH (17:38)
[2020-12-17] MEDS ORDERED: ZOLPIDEM TARTRATE 5 MG TAB PO SCH ×2 (18:00→22:00)
[2020-12-17 18:29] LABS: Protein, Urine 109.1 mg/dL (0.0-11.9)
[2020-12-17 18:32] LABS: Urine Bacteria FEW /hpf (None Seen); Urine Blood 1+ /uL (Negative); Urine Hyaline Cast FEW /lpf (0 - 2); Urine Mucus FEW (None Seen); Urine Specific Gravity 1.011 (1.001-1.035); Urine WBC 3 /hpf (0 - 3)
[2020-12-17] MEDS: ATORVASTATIN 20 MG TAB PO SCH (21:43)
[2020-12-17 22:00] VITALS: BP 106/42
[2020-12-18] VITALS (52 sets, daily range): BP systolic 54–134; BP diastolic 28–69
[2020-12-18] MEDS: ACCU-CHEK COMFORT CURVE STRIP VI SCH ×4 (00:30→17:59)
[2020-12-18] MEDS: InsuLIN REG 1unit/0.01ml Soln (100units/ml) SC SCH ×4 (00:37→18:00)
[2020-12-18] MEDS: LORazepam 2MG/ML-1ML VIAL IV PRN ×2 (02:26→10:35)
[2020-12-18] MEDS: INSULIN LANTUS (GLARGINE) 1 /0.01ml (100units/ml) SC SCH (06:40)
[2020-12-18] MEDS: FUROSEMIDE 40 MG/4 ML VIAL IV SCH (06:49)
[2020-12-18 06:59] LABS: Basophils # (auto) 0 10 ^3/uL (0-0.2); Basophils % (auto) 0.5 % (0.0-2.0); Eosinophils # (auto) 0.2 10 ^3/uL (0-0.8); Eosinophils % (auto) 1.8 % (0.0-7.0); Hematocrit 38.3 % (41.0-53.0); Hemoglobin 12.7 g/dL (13.5-17.5); Lymphocytes # (auto) 0.9 10 ^3/uL (0.4-5.4); Mean Corpuscular Hemoglobin 33.1 pg (28.0-32.0); Mean Corpuscular Hgb Conc. 33.2 g/dL (32.0-36.0); Mean Corpuscular Volume 99.9 fL (80.0-100.0); Monocytes # (auto) 1.4 10 ^3/uL (0-1.3); Monocytes % (auto) 15.7 % (0.0-12.0); Neutrophils # (auto) 6.3 10 ^3/uL (1.6-8.6); Nucleated Red Blood Cells % 0.1 %; Red Blood Cells 3.84 10^6/uL (4.5-5.90); Red Cell Distribution Width 15.7 % (11.8-14.3); White Blood Cell 8.8 10^3/uL (4.4-10.8)
[2020-12-18 07:17] LABS: BUN/Creatinine Ratio 19.1; Potassium 4.7 mmol/L (3.5-5.1)
[2020-12-18] MEDS ORDERED: cefTRIAXone 1GM/50ML D5W 50 ML IV SCH (09:00)
[2020-12-18] MEDS ORDERED: ALLOPURINOL 100 MG TAB PO SCH (10:00)
[2020-12-18] MEDS ORDERED: AZITHROMYCIN 250 MG TAB PO SCH (10:00)
[2020-12-18] MEDS: ASPirin 81 mg TAB PO SCH (10:00)
[2020-12-18] MEDS: ENOXAPARIN SOD 30 MG/0.3 ML SYRINGE SC SCH (10:00)
[2020-12-18] MEDS: ATENOLOL 25 MG TAB PO SCH (10:00)
[2020-12-18] MEDS: ALBUTEROL SULF 2.5 MG/0.5ML(0.5%) NEB SOLN NEB PRN (10:10)
[2020-12-18] MEDS ORDERED: ETOMIDATE (2MG/ML) 20ML VIAL IV ONE ×2 (11:02→11:13)
[2020-12-18] MEDS ORDERED: MIDAZOLAM HCL 2MG/2ML 2ml VIAL (1mg/ml) ONE (11:02)
[2020-12-18] MEDS ORDERED: ROCURONIUM 10MG/ML 10ML VIAL IV ONE ×2 (11:02→11:13)
[2020-12-18] MEDS ORDERED: SUCCINYLCHOLINE CHLORIDE 20 MG/ML 10ML VIAL IV ONE (11:03)
[2020-12-18] MEDS ORDERED: FAMOTIDINE (10MG/ML) 2ML VL IV ONE (11:15)
[2020-12-18] MEDS: PROPOFOL 100 ML IV SCH ×2 (11:15→21:50)
[2020-12-18] MEDS: MIDAZOLAM DRIP 50 mg/50mL 50 ML IV SCH (11:15)
[2020-12-18] MEDS ORDERED: PIPERACILLIN-TAZOB 2.25GM 50 ML IV ONE (11:15)
[2020-12-18] MEDS ORDERED: PROPOFOL 100 ML IV ONE (11:18)
[2020-12-18] MEDS: fentaNYL Drip 2500mCg/250mlNS 250 ML IV SCH (11:30)
[2020-12-18] MEDS ORDERED: fentaNYL Drip 2500mCg/250mlNS 250 ML IV ONE (11:39)
[2020-12-18] MEDS ORDERED: NOREPINEPHRINE 8 MG/250ML KIT 250 ML IV ONE (11:39)
[2020-12-18] MEDS ORDERED: SODIUM CHLORIDE 0.9% 250 ML IV ONE (11:45)
[2020-12-18] MEDS: BUMETANIDE INJECTION 12.5 MG in GIVE UN-DILUTED 0 ML IV SCH ×2 (13:00→23:27)
[2020-12-18] MEDS: NOREPINEPHRINE 8 MG/250ML KIT 250 ML IV SCH ×2 (17:50→22:58)
[2020-12-18] MEDS: PIPERACILLIN-TAZOB 2.25GM 50 ML IV SCH (17:58)
[2020-12-18] MEDS: ATORVASTATIN 20 MG TAB PO SCH (22:58)
[2020-12-19] VITALS (97 sets, daily range): BP systolic 92–142; BP diastolic 36–64
[2020-12-19] MEDS: PIPERACILLIN-TAZOB 2.25GM 50 ML IV SCH ×4 (00:20→16:43)
[2020-12-19] MEDS: InsuLIN REG 1unit/0.01ml Soln (100units/ml) SC SCH ×4 (05:34→18:35)
[2020-12-19] MEDS: ACCU-CHEK COMFORT CURVE STRIP VI SCH ×4 (05:34→16:43)
[2020-12-19] MEDS: FAMOTIDINE (10MG/ML) 2ML VL IV SCH (08:04)
[2020-12-19] MEDS: ASPirin 81 mg TAB PO SCH (08:04)
[2020-12-19] MEDS: PROPOFOL 100 ML IV SCH ×4 (08:04→23:00)
[2020-12-19] MEDS: ENOXAPARIN SOD 30 MG/0.3 ML SYRINGE SC SCH (08:04)
[2020-12-19] MEDS: MIDAZOLAM DRIP 50 mg/50mL 50 ML IV SCH (08:05)
[2020-12-19 09:39] LABS: Basophils # (auto) 0.1 10 ^3/uL (0-0.2); Basophils % (auto) 0.7 % (0.0-2.0); Eosinophils # (auto) 0.4 10 ^3/uL (0-0.8); Eosinophils % (auto) 4.5 % (0.0-7.0); Hemoglobin 12.8 g/dL (13.5-17.5); Lymphocytes # (auto) 1.2 10 ^3/uL (0.4-5.4); Lymphocytes % (auto) 14.1 % (10.0-50.0); Mean Corpuscular Hemoglobin 32.6 pg (28.0-32.0); Mean Corpuscular Hgb Conc. 33.8 g/dL (32.0-36.0); Mean Corpuscular Volume 96.6 fL (80.0-100.0); Monocytes # (auto) 0.9 10 ^3/uL (0-1.3); Monocytes % (auto) 10.6 % (0.0-12.0); Neutrophils # (auto) 6.2 10 ^3/uL (1.6-8.6); Neutrophils % (auto) 70.1 % (37.0-80.0); Nucleated Red Blood Cells % 0.1 %; Red Blood Cells 3.93 10^6/uL (4.5-5.90); Red Cell Distribution Width 15.3 % (11.8-14.3); White Blood Cell 8.8 10^3/uL (4.4-10.8)
[2020-12-19 09:57] LABS: Calcium 8.8 mg/dL (8.5-10.1); Potassium 3.8 mmol/L (3.5-5.1)
[2020-12-19] MEDS ORDERED: FUROSEMIDE 40 MG/4 ML VIAL IV SCH (10:00)
[2020-12-19 10:03] LABS: BUN/Creatinine Ratio 20.5; Calcium 8.8 mg/dL (8.5-10.1); Potassium 3.8 mmol/L (3.5-5.1); Total Protein 7.9 g/dL (6.4-8.2)
[2020-12-19 10:05] LABS: BUN/Creatinine Ratio 21.1
[2020-12-19 10:20] LABS: INR 1.04 (0.9-1.15)
[2020-12-19] MEDS ORDERED: Nepro With Carb Steady 1 Liter Bottle GT SCH (10:45)
[2020-12-19] MEDS: fentaNYL Drip 2500mCg/250mlNS 250 ML IV SCH ×2 (11:15→16:46)
[2020-12-19 11:31] LABS: Albumin 2.3 g/dL (3.4-5.0)
[2020-12-19] MEDS: DOBUTamine 1000MCG/ML 250 ML IV SCH (13:11)
[2020-12-19] MEDS: NOREPINEPHRINE 8 MG/250ML KIT 250 ML IV SCH (13:11)
[2020-12-19] MEDS ORDERED: BUMETANIDE INJECTION 40 ML ONE (20:43)
[2020-12-19] MEDS ORDERED: BUMETANIDE INJECTION 10 ML ONE (20:50)
[2020-12-20] VITALS (103 sets, daily range): BP systolic 85–158; BP diastolic 34–80
[2020-12-20] MEDS: SODIUM CHLOR 0.9% PF (SALINE LOCK) 10ML VIAL/SYR IV SCH ×3 (00:58→22:50)
[2020-12-20] MEDS: ATORVASTATIN 20 MG TAB PO SCH ×2 (00:59→22:50)
[2020-12-20] MEDS: PIPERACILLIN-TAZOB 2.25GM 50 ML IV SCH ×4 (00:59→18:05)
[2020-12-20] MEDS: ACCU-CHEK COMFORT CURVE STRIP VI SCH ×4 (01:00→18:04)
[2020-12-20] MEDS: InsuLIN REG 1unit/0.01ml Soln (100units/ml) SC SCH ×4 (01:00→18:00)
[2020-12-20] MEDS: DOBUTamine 1000MCG/ML 250 ML IV SCH ×2 (05:14→21:26)
[2020-12-20] MEDS: PROPOFOL 100 ML IV SCH ×3 (05:15→21:27)
[2020-12-20 07:17] LABS: Calcium 7.5 mg/dL (8.5-10.1); Potassium 3.9 mmol/L (3.5-5.1)
[2020-12-20 07:24] LABS: BUN/Creatinine Ratio 19.3; Bilirubin, Total 1.1 mg/dL (0.2-1.0)
[2020-12-20] MEDS: ASPirin 81 mg TAB PO SCH ×2 (08:41→11:31)
[2020-12-20] MEDS: MIDAZOLAM DRIP 50 mg/50mL 50 ML IV SCH (08:41)
[2020-12-20] MEDS: FAMOTIDINE (10MG/ML) 2ML VL IV SCH (08:43)
[2020-12-20] MEDS: ENOXAPARIN SOD 30 MG/0.3 ML SYRINGE SC SCH (08:45)
[2020-12-20 09:25] LABS: Albumin 1.8 g/dL (3.4-5.0); Total Protein 6.8 g/dL (6.4-8.2)
[2020-12-20] MEDS ORDERED: ALBUMIN 25% 100 ML IV ONE (10:00)
[2020-12-20] MEDS: BUMETANIDE INJECTION 12.5 MG in GIVE UN-DILUTED 0 ML IV SCH ×2 (12:05→22:30)
[2020-12-20] MEDS: fentaNYL Drip 2500mCg/250mlNS 250 ML IV SCH (23:03)
[2020-12-21] VITALS (103 sets, daily range): BP systolic 108–188; BP diastolic 39–70
[2020-12-21] MEDS: PIPERACILLIN-TAZOB 2.25GM 50 ML IV SCH ×4 (00:44→17:53)
[2020-12-21] MEDS: InsuLIN REG 1unit/0.01ml Soln (100units/ml) SC SCH ×4 (06:04→17:48)
[2020-12-21] MEDS: ACCU-CHEK COMFORT CURVE STRIP VI SCH ×4 (06:04→17:41)
[2020-12-21] MEDS: BUMETANIDE INJECTION 12.5 MG in GIVE UN-DILUTED 0 ML IV SCH (06:07)
[2020-12-21 06:39] LABS: Albumin 2.3 g/dL (3.4-5.0); Calcium 8.3 mg/dL (8.5-10.1)
[2020-12-21 06:43] LABS: Bilirubin, Total 0.7 mg/dL (0.2-1.0); Total Protein 7.5 g/dL (6.4-8.2)
[2020-12-21] MEDS: FAMOTIDINE (10MG/ML) 2ML VL IV SCH (10:31)
[2020-12-21] MEDS: ASPirin 81 mg TAB PO SCH (10:31)
[2020-12-21] MEDS: ENOXAPARIN SOD 30 MG/0.3 ML SYRINGE SC SCH (10:31)
[2020-12-21] MEDS: SODIUM CHLOR 0.9% PF (SALINE LOCK) 10ML VIAL/SYR IV SCH ×2 (10:31→22:34)
[2020-12-21] MEDS: MIDAZOLAM DRIP 50 mg/50mL 50 ML IV SCH (11:15)
[2020-12-21] MEDS: NOREPINEPHRINE 8 MG/250ML KIT 250 ML IV SCH (11:45)
[2020-12-21] MEDS: DOBUTamine 1000MCG/ML 250 ML IV SCH (13:34)
[2020-12-21] MEDS: PROPOFOL 100 ML IV SCH (15:33)
[2020-12-21] MEDS: ATORVASTATIN 20 MG TAB PO SCH (22:35)
[2020-12-22] VITALS (83 sets, daily range): BP systolic 97–199; BP diastolic 41–83
[2020-12-22] MEDS: PROPOFOL 100 ML IV SCH ×2 (00:02→04:13)
[2020-12-22] MEDS: ACCU-CHEK COMFORT CURVE STRIP VI SCH ×5 (00:15→23:59)
[2020-12-22] MEDS: PIPERACILLIN-TAZOB 2.25GM 50 ML IV SCH ×5 (00:18→23:59)
[2020-12-22] MEDS: InsuLIN REG 1unit/0.01ml Soln (100units/ml) SC SCH ×4 (00:29→18:21)
[2020-12-22 05:23] LABS: Basophils # (auto) 0 10 ^3/uL (0-0.2); Basophils % (auto) 0.5 % (0.0-2.0); Eosinophils # (auto) 0.2 10 ^3/uL (0-0.8); Hematocrit 33.6 % (41.0-53.0); Hemoglobin 11.5 g/dL (13.5-17.5); Lymphocytes # (auto) 0.5 10 ^3/uL (0.4-5.4); Lymphocytes % (auto) 8.3 % (10.0-50.0); Mean Corpuscular Hemoglobin 32.5 pg (28.0-32.0); Mean Corpuscular Hgb Conc. 34.2 g/dL (32.0-36.0); Mean Corpuscular Volume 95.1 fL (80.0-100.0); Monocytes # (auto) 0.7 10 ^3/uL (0-1.3); Monocytes % (auto) 10.5 % (0.0-12.0); Neutrophils # (auto) 4.9 10 ^3/uL (1.6-8.6); Neutrophils % (auto) 77.7 % (37.0-80.0); Nucleated Red Blood Cells % 0.1 %; Red Blood Cells 3.53 10^6/uL (4.5-5.90); Red Cell Distribution Width 14.8 % (11.8-14.3); White Blood Cell 6.3 10^3/uL (4.4-10.8)
[2020-12-22 05:42] LABS: Calcium 8.9 mg/dL (8.5-10.1)
[2020-12-22] MEDS: DOBUTamine 1000MCG/ML 250 ML IV SCH ×2 (05:48→21:26)
[2020-12-22 05:49] LABS: BUN/Creatinine Ratio 22.1; Bilirubin, Total 0.6 mg/dL (0.2-1.0); Total Protein 7.8 g/dL (6.4-8.2)
[2020-12-22 08:44] LABS: Albumin 2.3 g/dL (3.4-5.0)
[2020-12-22] MEDS: ENOXAPARIN SOD 30 MG/0.3 ML SYRINGE SC SCH (10:29)
[2020-12-22] MEDS: FAMOTIDINE (10MG/ML) 2ML VL IV SCH (10:29)
[2020-12-22] MEDS: SODIUM CHLOR 0.9% PF (SALINE LOCK) 10ML VIAL/SYR IV SCH ×2 (10:29→21:20)
[2020-12-22] MEDS: ASPirin 81 mg TAB PO SCH (10:29)
[2020-12-22] MEDS: MIDAZOLAM DRIP 50 mg/50mL 50 ML IV SCH (11:15)
[2020-12-22] MEDS: fentaNYL Drip 2500mCg/250mlNS 250 ML IV SCH (11:15)
[2020-12-22] MEDS: NOREPINEPHRINE 8 MG/250ML KIT 250 ML IV SCH (11:45)
[2020-12-22] MEDS ORDERED: INSULIN LANTUS (GLARGINE) 1 /0.01ml (100units/ml) SC ONE (12:00)
[2020-12-22] MEDS: LABETALOL HCL 5 MG/ML 4ML SYRINGE IV PRN ×3 (12:28→22:33)
[2020-12-22] MEDS ORDERED: hydrALAZINE HCL 25 MG TAB PO ONE (17:15)
[2020-12-22] MEDS ORDERED: ISOSORBIDE MONONITRATE ER 60 MG TAB PO ONE (17:15)
[2020-12-22] MEDS: ATORVASTATIN 20 MG TAB PO SCH (21:20)
[2020-12-22] MEDS: hydrALAZINE HCL 25 MG TAB PO SCH (21:20)
[2020-12-22] MEDS: INSULIN LANTUS (GLARGINE) 1 /0.01ml (100units/ml) SC SCH (21:26)
[2020-12-23] MEDS: InsuLIN REG 1unit/0.01ml Soln (100units/ml) SC SCH ×4 (00:14→16:42)
[2020-12-23 05:00] VITALS: BP 149/65
[2020-12-23 05:55] LABS: Basophils # (auto) 0 10 ^3/uL (0-0.2); Basophils % (auto) 0.6 % (0.0-2.0); Eosinophils # (auto) 0.2 10 ^3/uL (0-0.8); Eosinophils % (auto) 2.6 % (0.0-7.0); Hemoglobin 12.3 g/dL (13.5-17.5); Lymphocytes # (auto) 0.4 10 ^3/uL (0.4-5.4); Lymphocytes % (auto) 6.1 % (10.0-50.0); Mean Corpuscular Hemoglobin 33.6 pg (28.0-32.0); Mean Corpuscular Hgb Conc. 36.1 g/dL (32.0-36.0); Mean Corpuscular Volume 93.2 fL (80.0-100.0); Monocytes # (auto) 0.8 10 ^3/uL (0-1.3); Monocytes % (auto) 10.7 % (0.0-12.0); Neutrophils # (auto) 5.8 10 ^3/uL (1.6-8.6); Red Blood Cells 3.65 10^6/uL (4.5-5.90); Red Cell Distribution Width 14.8 % (11.8-14.3); White Blood Cell 7.2 10^3/uL (4.4-10.8)
[2020-12-23] MEDS: PIPERACILLIN-TAZOB 2.25GM 50 ML IV SCH ×3 (06:30→16:41)
[2020-12-23] MEDS: ACCU-CHEK COMFORT CURVE STRIP VI SCH ×3 (06:32→16:41)
[2020-12-23 06:33] LABS: Potassium 3.9 mmol/L (3.5-5.1)
[2020-12-23] MEDS: INSULIN LANTUS (GLARGINE) 1 /0.01ml (100units/ml) SC SCH ×2 (06:36→21:46)
[2020-12-23 06:39] LABS: BUN/Creatinine Ratio 22.6; Calcium 9.6 mg/dL (8.5-10.1)
[2020-12-23 09:00] VITALS: BP 151/62
[2020-12-23] MEDS ORDERED: BUMETANIDE 2.5mg/10ml (0.25 mg/ml) INJ IV SCH (09:00)
[2020-12-23] MEDS: hydrALAZINE HCL 25 MG TAB PO SCH ×2 (09:28→21:45)
[2020-12-23] MEDS: ASPirin 81 mg TAB PO SCH (09:29)
[2020-12-23] MEDS: FAMOTIDINE (10MG/ML) 2ML VL IV SCH (09:29)
[2020-12-23] MEDS: ISOSORBIDE MONONITRATE ER 60 MG TAB PO SCH (09:29)
[2020-12-23] MEDS: ENOXAPARIN SOD 30 MG/0.3 ML SYRINGE SC SCH (09:30)
[2020-12-23] MEDS: SODIUM CHLOR 0.9% PF (SALINE LOCK) 10ML VIAL/SYR IV SCH ×2 (09:30→22:00)
[2020-12-23 13:00] VITALS: BP 128/71
[2020-12-23] MEDS: ALBUTEROL SULF 2.5 MG/0.5ML(0.5%) NEB SOLN NEB PRN (15:27)
[2020-12-23] MEDS: DOBUTamine 1000MCG/ML 250 ML IV SCH (15:28)
[2020-12-23] MEDS ORDERED: methylPREDNISolone SOD SUCC 40 MG/ML VL IV ONE (15:45)
[2020-12-23] MEDS: BUMETANIDE 2.5mg/10ml (0.25 mg/ml) INJ IV SCH (16:41)
[2020-12-23 17:00] VITALS: BP 168/69
[2020-12-23 20:30] VITALS: BP 168/69
[2020-12-23] MEDS ORDERED: FUROSEMIDE 40 MG/4 ML VIAL IV ONE ×2 (21:15→21:30)
[2020-12-23] MEDS: methylPREDNISolone SOD SUCC 40 MG/ML VL IV SCH (21:45)
[2020-12-23] MEDS: ATORVASTATIN 20 MG TAB PO SCH (21:45)
[2020-12-23 22:00] VITALS: BP 168/106
[2020-12-24] VITALS (7 sets, daily range): BP systolic 151–165; BP diastolic 67–86
[2020-12-24] MEDS: PIPERACILLIN-TAZOB 2.25GM 50 ML IV SCH ×4 (00:49→19:29)
[2020-12-24] MEDS: BUMETANIDE 2.5mg/10ml (0.25 mg/ml) INJ IV SCH (06:00)
[2020-12-24] MEDS: ALBUTEROL SULF 2.5 MG/0.5ML(0.5%) NEB SOLN NEB SCH ×8 (06:00→22:02)
[2020-12-24] MEDS: InsuLIN REG 1unit/0.01ml Soln (100units/ml) SC SCH ×5 (06:16→21:41)
[2020-12-24] MEDS: ACCU-CHEK COMFORT CURVE STRIP VI SCH ×4 (06:17→21:08)
[2020-12-24 06:21] LABS: Potassium 4.2 mmol/L (3.5-5.1)
[2020-12-24 06:28] LABS: BUN/Creatinine Ratio 23.3; Calcium 9.5 mg/dL (8.5-10.1)
[2020-12-24] MEDS: INSULIN LANTUS (GLARGINE) 1 /0.01ml (100units/ml) SC SCH ×2 (07:00→22:50)
[2020-12-24] MEDS: ASPirin 81 mg TAB PO SCH (09:24)
[2020-12-24] MEDS: ISOSORBIDE MONONITRATE ER 60 MG TAB PO SCH (09:24)
[2020-12-24] MEDS: hydrALAZINE HCL 25 MG TAB PO SCH ×3 (09:25→23:36)
[2020-12-24] MEDS: FAMOTIDINE (10MG/ML) 2ML VL IV SCH (09:32)
[2020-12-24] MEDS: methylPREDNISolone SOD SUCC 40 MG/ML VL IV SCH (09:33)
[2020-12-24] MEDS: ENOXAPARIN SOD 30 MG/0.3 ML SYRINGE SC SCH (09:33)
[2020-12-24] MEDS: SODIUM CHLOR 0.9% PF (SALINE LOCK) 10ML VIAL/SYR IV SCH ×2 (09:34→22:38)
[2020-12-24] MEDS: DOBUTamine 1000MCG/ML 250 ML IV SCH (09:55)
[2020-12-24] MEDS ORDERED: ACCU-CHEK COMFORT CURVE STRIP VI SCH ×2 (12:00→16:00)
[2020-12-24] MEDS ORDERED: DEXTROSE (50%) 50ML SYRG IV PRN ×3 (12:00→13:00)
[2020-12-24] MEDS ORDERED: InsuLIN REG 1unit/0.01ml Soln (100units/ml) SC SCH ×2 (12:00→16:00)
[2020-12-24] MEDS: BUMETANIDE INJECTION 25 MG in GIVE UN-DILUTED 0 ML IV SCH (14:45)
[2020-12-24] MEDS ORDERED: InsuLIN REG 1unit/0.01ml Soln (100units/ml) IV ONE (17:00)
[2020-12-24] MEDS: Glucerna Carbsteady SHAKE Vanilla 8oz PO SCH (19:28)
[2020-12-24 20:14] LABS: INR 1.05 (0.9-1.15); Partial Thromboplastin Time 24.8 sec (23.6-33.0)
[2020-12-24] MEDS: ATORVASTATIN 20 MG TAB PO SCH ×2 (22:44→23:37)
[2020-12-24] MEDS ORDERED: InsuLIN REG 1unit/0.01ml Soln (100units/ml) SC ONE (23:00)
[2020-12-24] MEDS ORDERED: LORazepam 2MG/ML-1ML VIAL IV PRN (23:00)
[2020-12-25] VITALS (82 sets, daily range): BP systolic 81–147; BP diastolic 36–68
[2020-12-25] MEDS ORDERED: HALOPERIDOL LACTATE 5 MG/ML INJ VIAL ONE (02:25)
[2020-12-25] MEDS ORDERED: HALOPERIDOL LACTATE 5 MG/ML INJ VIAL IM ONE (02:30)
[2020-12-25] MEDS ORDERED: ETOMIDATE (2MG/ML) 20ML VIAL IV ONE (02:47)
[2020-12-25] MEDS ORDERED: SUCCINYLCHOLINE CHLORIDE 20 MG/ML 10ML VIAL IV ONE (02:48)
[2020-12-25] MEDS: DOBUTamine 1000MCG/ML 250 ML IV SCH ×2 (03:03→18:10)
[2020-12-25] MEDS: ACCU-CHEK COMFORT CURVE STRIP VI SCH ×6 (03:03→20:00)
[2020-12-25] MEDS: InsuLIN REG 1unit/0.01ml Soln (100units/ml) SC SCH ×6 (03:05→21:24)
[2020-12-25] MEDS: MIDAZOLAM DRIP 50 mg/50mL 50 ML IV SCH ×4 (03:10→23:43)
[2020-12-25] MEDS ORDERED: fentaNYL Drip 2500mCg/250mlNS 250 ML IV ONE (03:10)
[2020-12-25] MEDS ORDERED: PROPOFOL 0 ML IV ONE (03:18)
[2020-12-25] MEDS ORDERED: MIDAZOLAM DRIP 50 mg/50mL 50 ML IV ONE (04:22)
[2020-12-25] MEDS ORDERED: NOREPINEPHRINE 8 MG/250ML KIT 250 ML IV ONE (05:11)
[2020-12-25] MEDS ORDERED: fentaNYL Drip 2500mCg/250mlNS 250 ML IV SCH (05:15)
[2020-12-25] MEDS: PIPERACILLIN-TAZOB 2.25GM 50 ML IV SCH ×5 (05:46→23:42)
[2020-12-25] MEDS: NOREPINEPHRINE 8 MG/250ML KIT 250 ML IV SCH (06:00)
[2020-12-25] MEDS: ALBUTEROL SULF 2.5 MG/0.5ML(0.5%) NEB SOLN NEB SCH ×5 (06:54→22:24)
[2020-12-25] MEDS: INSULIN LANTUS (GLARGINE) 1 /0.01ml (100units/ml) SC SCH ×2 (06:56→21:52)
[2020-12-25] MEDS ORDERED: SODIUM CHL 0.9% 1000 ML BAG XX ONE (07:00)
[2020-12-25 07:11] LABS: Basophils # (auto) 0 10 ^3/uL (0-0.2); Basophils % (auto) 0.3 % (0.0-2.0); Eosinophils # (auto) 0 10 ^3/uL (0-0.8); Eosinophils % (auto) 0.1 % (0.0-7.0); Hematocrit 37.6 % (41.0-53.0); Hemoglobin 12.4 g/dL (13.5-17.5); Lymphocytes # (auto) 0.4 10 ^3/uL (0.4-5.4); Lymphocytes % (auto) 2.7 % (10.0-50.0); Mean Corpuscular Hemoglobin 32.4 pg (28.0-32.0); Mean Corpuscular Volume 98.1 fL (80.0-100.0); Monocytes # (auto) 1.3 10 ^3/uL (0-1.3); Neutrophils # (auto) 11.7 10 ^3/uL (1.6-8.6); Neutrophils % (auto) 86.9 % (37.0-80.0); Nucleated Red Blood Cells % 0.1 %; Red Blood Cells 3.83 10^6/uL (4.5-5.90); Red Cell Distribution Width 15.1 % (11.8-14.3); White Blood Cell 13.5 10^3/uL (4.4-10.8)
[2020-12-25 07:25] LABS: INR 1.08 (0.9-1.15); Partial Thromboplastin Time 23.5 sec (23.6-33.0)
[2020-12-25 07:45] LABS: BUN/Creatinine Ratio 23.1; Calcium 9.6 mg/dL (8.5-10.1); Phosphorus 5.1 mg/dL (2.5-4.90); Total Protein 8.4 g/dL (6.4-8.2)
[2020-12-25] MEDS: Glucerna Carbsteady SHAKE Vanilla 8oz PO SCH (08:00)
[2020-12-25 08:03] LABS: Albumin 2.1 g/dL (3.4-5.0)
[2020-12-25] MEDS: hydrALAZINE HCL 25 MG TAB PO SCH ×2 (09:42→21:51)
[2020-12-25] MEDS: ISOSORBIDE MONONITRATE ER 60 MG TAB PO SCH (09:42)
[2020-12-25] MEDS: FAMOTIDINE (10MG/ML) 2ML VL IV SCH (09:51)
[2020-12-25] MEDS: ENOXAPARIN SOD 30 MG/0.3 ML SYRINGE SC SCH (09:51)
[2020-12-25] MEDS: ASPirin 81 mg TAB PO SCH (09:51)
[2020-12-25] MEDS: SODIUM CHLOR 0.9% PF (SALINE LOCK) 10ML VIAL/SYR IV SCH ×2 (10:29→21:50)
[2020-12-25] MEDS ORDERED: HEPARIN 1,000 UNITS/ml 1ML VIAL IV ONE (11:00)
[2020-12-25] MEDS: BUMETANIDE INJECTION 25 MG in GIVE UN-DILUTED 0 ML IV SCH (11:20)
[2020-12-25] MEDS: fentaNYL Drip 2500mCg/250mlNS 250 ML IV SCH ×2 (12:12→14:57)
[2020-12-25] MEDS ORDERED: ALBUMIN 25% 50 ML IV ONE (13:00)
[2020-12-25] MEDS: ATORVASTATIN 20 MG TAB PO SCH (21:51)
[2020-12-26] VITALS (100 sets, daily range): BP systolic 89–169; BP diastolic 39–63
[2020-12-26] MEDS: ALBUTEROL SULF 2.5 MG/0.5ML(0.5%) NEB SOLN NEB SCH ×6 (02:29→22:19)
[2020-12-26] MEDS: ACCU-CHEK COMFORT CURVE STRIP VI SCH ×7 (04:10→23:56)
[2020-12-26] MEDS: InsuLIN REG 1unit/0.01ml Soln (100units/ml) SC SCH ×6 (04:11→22:40)
[2020-12-26 04:59] LABS: Basophils # (auto) 0.1 10 ^3/uL (0-0.2); Basophils % (auto) 0.5 % (0.0-2.0); Eosinophils # (auto) 0.4 10 ^3/uL (0-0.8); Eosinophils % (auto) 3.6 % (0.0-7.0); Hematocrit 33.9 % (41.0-53.0); Hemoglobin 11.2 g/dL (13.5-17.5); Lymphocytes # (auto) 0.8 10 ^3/uL (0.4-5.4); Lymphocytes % (auto) 6.8 % (10.0-50.0); Mean Corpuscular Hemoglobin 31.6 pg (28.0-32.0); Mean Corpuscular Hgb Conc. 33.1 g/dL (32.0-36.0); Mean Corpuscular Volume 95.6 fL (80.0-100.0); Monocytes % (auto) 8.9 % (0.0-12.0); Neutrophils # (auto) 9.3 10 ^3/uL (1.6-8.6); Neutrophils % (auto) 80.2 % (37.0-80.0); Nucleated Red Blood Cells % 0.1 %; Red Blood Cells 3.55 10^6/uL (4.5-5.90); Red Cell Distribution Width 15.2 % (11.8-14.3); White Blood Cell 11.5 10^3/uL (4.4-10.8)
[2020-12-26 05:10] LABS: BUN/Creatinine Ratio 17.9; Calcium 8.6 mg/dL (8.5-10.1); Potassium 3.8 mmol/L (3.5-5.1)
[2020-12-26] MEDS: PIPERACILLIN-TAZOB 2.25GM 50 ML IV SCH ×4 (05:34→23:56)
[2020-12-26] MEDS: INSULIN LANTUS (GLARGINE) 1 /0.01ml (100units/ml) SC SCH ×2 (07:36→22:29)
[2020-12-26] MEDS: hydrALAZINE HCL 25 MG TAB PO SCH ×2 (09:55→22:00)
[2020-12-26] MEDS: ASPirin 81 mg TAB PO SCH (10:06)
[2020-12-26] MEDS: ENOXAPARIN SOD 30 MG/0.3 ML SYRINGE SC SCH (10:06)
[2020-12-26] MEDS: FAMOTIDINE (10MG/ML) 2ML VL IV SCH (10:06)
[2020-12-26] MEDS: DOBUTamine 1000MCG/ML 250 ML IV SCH (10:06)
[2020-12-26] MEDS: SODIUM CHLOR 0.9% PF (SALINE LOCK) 10ML VIAL/SYR IV SCH ×2 (10:07→22:23)
[2020-12-26] MEDS ORDERED: SODIUM CHLORIDE 0.9% 1,000 ML IV ONE (13:30)
[2020-12-26] MEDS: NOREPINEPHRINE 8 MG/250ML KIT 250 ML IV SCH (15:00)
[2020-12-26] MEDS: ATORVASTATIN 20 MG TAB PO SCH (22:25)
[2020-12-26] MEDS: MIDAZOLAM DRIP 50 mg/50mL 50 ML IV SCH (23:25)
[2020-12-27] VITALS (103 sets, daily range): BP systolic 87–146; BP diastolic 35–62
[2020-12-27] MEDS: InsuLIN REG 1unit/0.01ml Soln (100units/ml) SC SCH ×6 (00:09→21:45)
[2020-12-27] MEDS: ALBUTEROL SULF 2.5 MG/0.5ML(0.5%) NEB SOLN NEB SCH ×6 (02:11→22:22)
[2020-12-27] MEDS: DOBUTamine 1000MCG/ML 250 ML IV SCH ×2 (03:41→18:09)
[2020-12-27] MEDS: MIDAZOLAM DRIP 50 mg/50mL 50 ML IV SCH ×2 (03:43→20:00)
[2020-12-27] MEDS: fentaNYL Drip 2500mCg/250mlNS 250 ML IV SCH (03:54)
[2020-12-27] MEDS: ACCU-CHEK COMFORT CURVE STRIP VI SCH ×5 (04:29→20:00)
[2020-12-27 05:02] LABS: Hematocrit 29.1 % (41.0-53.0); Mean Corpuscular Hemoglobin 32.6 pg (28.0-32.0); Mean Corpuscular Hgb Conc. 34.5 g/dL (32.0-36.0); Mean Corpuscular Volume 94.4 fL (80.0-100.0); Red Blood Cells 3.08 10^6/uL (4.5-5.90); Red Cell Distribution Width 15.4 % (11.8-14.3); White Blood Cell 9.7 10^3/uL (4.4-10.8)
[2020-12-27 05:11] LABS: Basophils % (manual) 0 (0.0-2.0); Blast Cells 0; Promyelocytes % 0; Reactive Lymphocytes 0
[2020-12-27] MEDS: NOREPINEPHRINE 8 MG/250ML KIT 250 ML IV SCH (05:15)
[2020-12-27 05:17] LABS: BUN/Creatinine Ratio 17.8; Calcium 8.3 mg/dL (8.5-10.1); Potassium 3.8 mmol/L (3.5-5.1)
[2020-12-27] MEDS: PIPERACILLIN-TAZOB 2.25GM 50 ML IV SCH ×3 (06:01→17:23)
[2020-12-27 06:06] LABS: Band Neutrophils % (manual) 5; Eosinophils % (manual) 1 (0-7); Lymphocytes % (manual) 4 (10.0-50.0); Metamyelocytes % 2; Monocytes % (manual) 4 (0-12); Myelocytes % 1
[2020-12-27] MEDS: INSULIN LANTUS (GLARGINE) 1 /0.01ml (100units/ml) SC SCH ×2 (06:12→22:59)
[2020-12-27] MEDS: hydrALAZINE HCL 25 MG TAB PO SCH ×2 (10:00→21:46)
[2020-12-27] MEDS: FAMOTIDINE (10MG/ML) 2ML VL IV SCH (10:10)
[2020-12-27] MEDS: ASPirin 81 mg TAB PO SCH (10:10)
[2020-12-27] MEDS: SODIUM CHLOR 0.9% PF (SALINE LOCK) 10ML VIAL/SYR IV SCH ×2 (10:10→21:45)
[2020-12-27] MEDS: ENOXAPARIN SOD 30 MG/0.3 ML SYRINGE SC SCH (10:11)
[2020-12-27] MEDS: ATORVASTATIN 20 MG TAB PO SCH (21:46)
[2020-12-28] VITALS (103 sets, daily range): BP systolic 80–169; BP diastolic 35–61
[2020-12-28] MEDS: PIPERACILLIN-TAZOB 2.25GM 50 ML IV SCH ×5 (00:26→23:41)
[2020-12-28] MEDS: ACCU-CHEK COMFORT CURVE STRIP VI SCH ×7 (00:26→23:41)
[2020-12-28] MEDS: InsuLIN REG 1unit/0.01ml Soln (100units/ml) SC SCH ×7 (00:29→23:58)
[2020-12-28] MEDS: fentaNYL Drip 2500mCg/250mlNS 250 ML IV SCH ×2 (00:38→14:00)
[2020-12-28] MEDS: ALBUTEROL SULF 2.5 MG/0.5ML(0.5%) NEB SOLN NEB SCH ×6 (02:36→22:27)
[2020-12-28] MEDS: NOREPINEPHRINE 8 MG/250ML KIT 250 ML IV SCH (04:17)
[2020-12-28 05:48] LABS: Basophils # (auto) 0 10 ^3/uL (0-0.2); Basophils % (auto) 0.4 % (0.0-2.0); Eosinophils # (auto) 0.4 10 ^3/uL (0-0.8); Eosinophils % (auto) 4.1 % (0.0-7.0); Hematocrit 29.8 % (41.0-53.0); Hemoglobin 10.2 g/dL (13.5-17.5); Lymphocytes # (auto) 0.6 10 ^3/uL (0.4-5.4); Lymphocytes % (auto) 6.1 % (10.0-50.0); Mean Corpuscular Hemoglobin 32.1 pg (28.0-32.0); Mean Corpuscular Hgb Conc. 34.1 g/dL (32.0-36.0); Mean Corpuscular Volume 94.1 fL (80.0-100.0); Monocytes # (auto) 0.8 10 ^3/uL (0-1.3); Monocytes % (auto) 8.6 % (0.0-12.0); Neutrophils # (auto) 7.9 10 ^3/uL (1.6-8.6); Neutrophils % (auto) 80.8 % (37.0-80.0); Nucleated Red Blood Cells % 0.1 %; Red Blood Cells 3.17 10^6/uL (4.5-5.90); Red Cell Distribution Width 15.4 % (11.8-14.3); White Blood Cell 9.7 10^3/uL (4.4-10.8)
[2020-12-28 05:54] LABS: Potassium 4.5 mmol/L (3.5-5.1)
[2020-12-28 05:59] LABS: BUN/Creatinine Ratio 15.9; Calcium 8.5 mg/dL (8.5-10.1)
[2020-12-28] MEDS: INSULIN LANTUS (GLARGINE) 1 /0.01ml (100units/ml) SC SCH ×2 (06:44→21:40)
[2020-12-28] MEDS: MIDAZOLAM DRIP 50 mg/50mL 50 ML IV SCH ×3 (08:15→21:56)
[2020-12-28] MEDS ORDERED: ALBUMIN 25% 0 ML IV ONE (09:05)
[2020-12-28] MEDS ORDERED: ALBUMIN 25% 200 ML IV ONE (09:07)
[2020-12-28] MEDS ORDERED: SODIUM CHL 0.9% 1000 ML BAG XX ONE (09:15)
[2020-12-28] MEDS: ALBUMIN 25% 50 ML IV SCH ×2 (09:15→10:15)
[2020-12-28] MEDS: hydrALAZINE HCL 25 MG TAB PO SCH ×2 (10:00→21:33)
[2020-12-28] MEDS ORDERED: Glucerna 1.2 Cal 1Liter BOTTLE GT SCH (11:15)
[2020-12-28] MEDS: ENOXAPARIN SOD 30 MG/0.3 ML SYRINGE SC SCH (12:53)
[2020-12-28] MEDS: SODIUM CHLOR 0.9% PF (SALINE LOCK) 10ML VIAL/SYR IV SCH ×2 (12:53→21:32)
[2020-12-28] MEDS: FAMOTIDINE (10MG/ML) 2ML VL IV SCH (12:53)
[2020-12-28] MEDS: ASPirin 81 mg TAB PO SCH (12:53)
[2020-12-28] MEDS ORDERED: EPOETIN ALFA-EPBX 4,000 UNIT/ML VIAL SC ONE (21:00)
[2020-12-28] MEDS: ATORVASTATIN 20 MG TAB PO SCH (21:33)
[2020-12-29] VITALS (98 sets, daily range): BP systolic 99–148; BP diastolic 38–62
[2020-12-29] MEDS: ALBUTEROL SULF 2.5 MG/0.5ML(0.5%) NEB SOLN NEB SCH ×6 (02:06→22:52)
[2020-12-29] MEDS: fentaNYL Drip 2500mCg/250mlNS 250 ML IV SCH ×2 (03:26→14:49)
[2020-12-29] MEDS: MIDAZOLAM DRIP 50 mg/50mL 50 ML IV SCH ×4 (03:27→21:40)
[2020-12-29] MEDS: ACCU-CHEK COMFORT CURVE STRIP VI SCH ×6 (03:59→23:54)
[2020-12-29] MEDS: NOREPINEPHRINE 8 MG/250ML KIT 250 ML IV SCH (03:59)
[2020-12-29] MEDS: InsuLIN REG 1unit/0.01ml Soln (100units/ml) SC SCH ×6 (04:03→23:54)
[2020-12-29 05:47] LABS: Basophils # (auto) 0 10 ^3/uL (0-0.2); Basophils % (auto) 0.4 % (0.0-2.0); Eosinophils # (auto) 0.4 10 ^3/uL (0-0.8); Eosinophils % (auto) 4.3 % (0.0-7.0); Hematocrit 27.5 % (41.0-53.0); Hemoglobin 9.4 g/dL (13.5-17.5); Lymphocytes # (auto) 0.6 10 ^3/uL (0.4-5.4); Lymphocytes % (auto) 6.7 % (10.0-50.0); Mean Corpuscular Hemoglobin 32.1 pg (28.0-32.0); Mean Corpuscular Hgb Conc. 34.2 g/dL (32.0-36.0); Monocytes # (auto) 0.8 10 ^3/uL (0-1.3); Monocytes % (auto) 9.3 % (0.0-12.0); Neutrophils # (auto) 6.6 10 ^3/uL (1.6-8.6); Neutrophils % (auto) 79.3 % (37.0-80.0); Red Blood Cells 2.92 10^6/uL (4.5-5.90); Red Cell Distribution Width 15.2 % (11.8-14.3); White Blood Cell 8.3 10^3/uL (4.4-10.8)
[2020-12-29 05:57] LABS: Calcium 8.6 mg/dL (8.5-10.1); Potassium 3.8 mmol/L (3.5-5.1)
[2020-12-29 06:00] LABS: BUN/Creatinine Ratio 13.7
[2020-12-29] MEDS: PIPERACILLIN-TAZOB 2.25GM 50 ML IV SCH ×4 (06:13→23:54)
[2020-12-29] MEDS: INSULIN LANTUS (GLARGINE) 1 /0.01ml (100units/ml) SC SCH ×2 (06:31→21:39)
[2020-12-29] MEDS: SODIUM CHLOR 0.9% PF (SALINE LOCK) 10ML VIAL/SYR IV SCH ×2 (10:30→21:38)
[2020-12-29] MEDS ORDERED: FUROSEMIDE 100 MG/10ML VIAL IV ONE (10:30)
[2020-12-29] MEDS: FAMOTIDINE (10MG/ML) 2ML VL IV SCH (10:30)
[2020-12-29] MEDS: ASPirin 81 mg TAB PO SCH (10:30)
[2020-12-29] MEDS: ENOXAPARIN SOD 30 MG/0.3 ML SYRINGE SC SCH (10:30)
[2020-12-29] MEDS ORDERED: Nepro With Carb Steady 1 Liter Bottle GT SCH (11:00)
[2020-12-29] MEDS: LACTULOSE 20Gm/30ML SOLN PO SCH ×3 (12:04→23:47)
[2020-12-29] MEDS: ATORVASTATIN 20 MG TAB PO SCH (21:38)
[2020-12-30] VITALS (68 sets, daily range): BP systolic 96–165; BP diastolic 35–79
[2020-12-30] MEDS: ALBUTEROL SULF 2.5 MG/0.5ML(0.5%) NEB SOLN NEB SCH ×6 (02:59→22:10)
[2020-12-30] MEDS: ACCU-CHEK COMFORT CURVE STRIP VI SCH ×5 (03:31→23:44)
[2020-12-30] MEDS: MIDAZOLAM DRIP 50 mg/50mL 50 ML IV SCH ×3 (03:32→20:00)
[2020-12-30] MEDS: fentaNYL Drip 2500mCg/250mlNS 250 ML IV SCH ×2 (03:35→20:04)
[2020-12-30] MEDS: InsuLIN REG 1unit/0.01ml Soln (100units/ml) SC SCH ×5 (03:36→23:44)
[2020-12-30] MEDS: NOREPINEPHRINE 8 MG/250ML KIT 250 ML IV SCH (05:15)
[2020-12-30 05:44] LABS: BUN/Creatinine Ratio 14.3; Calcium 9.1 mg/dL (8.5-10.1); Potassium 3.7 mmol/L (3.5-5.1)
[2020-12-30] MEDS: PIPERACILLIN-TAZOB 2.25GM 50 ML IV SCH ×4 (05:50→23:33)
[2020-12-30] MEDS: LACTULOSE 20Gm/30ML SOLN PO SCH ×4 (05:50→23:36)
[2020-12-30] MEDS: INSULIN LANTUS (GLARGINE) 1 /0.01ml (100units/ml) SC SCH ×2 (06:33→22:31)
[2020-12-30] MEDS ORDERED: SODIUM CHL 0.9% 1000 ML BAG XX ONE (07:00)
[2020-12-30] MEDS: ASPirin 81 mg TAB PO SCH (09:43)
[2020-12-30] MEDS: FAMOTIDINE (10MG/ML) 2ML VL IV SCH (09:43)
[2020-12-30] MEDS: ENOXAPARIN SOD 30 MG/0.3 ML SYRINGE SC SCH (09:43)
[2020-12-30] MEDS ORDERED: ALBUMIN 25% 100 ML IV ONE (13:00)
[2020-12-30] MEDS: SODIUM CHLOR 0.9% PF (SALINE LOCK) 10ML VIAL/SYR IV SCH ×2 (15:58→22:30)
[2020-12-30] MEDS ORDERED: EPOETIN ALFA-EPBX 10,000 UNIT/1ML VIAL SC ONE (21:00)
[2020-12-30] MEDS: ATORVASTATIN 20 MG TAB PO SCH (22:30)
[2020-12-31] VITALS (71 sets, daily range): BP systolic 102–155; BP diastolic 38–63
[2020-12-31] MEDS: MIDAZOLAM DRIP 50 mg/50mL 50 ML IV SCH ×3 (01:03→09:02)
[2020-12-31] MEDS: ALBUTEROL SULF 2.5 MG/0.5ML(0.5%) NEB SOLN NEB SCH ×6 (02:18→22:03)
[2020-12-31] MEDS: ACCU-CHEK COMFORT CURVE STRIP VI SCH ×5 (04:02→20:00)
[2020-12-31] MEDS: InsuLIN REG 1unit/0.01ml Soln (100units/ml) SC SCH ×3 (04:03→20:31)
[2020-12-31] MEDS: fentaNYL Drip 2500mCg/250mlNS 250 ML IV SCH (04:19)
[2020-12-31 04:53] LABS: BUN/Creatinine Ratio 9.2; Basophils # (auto) 0 10 ^3/uL (0-0.2); Basophils % (auto) 0.4 % (0.0-2.0); Calcium 8.6 mg/dL (8.5-10.1); Eosinophils # (auto) 0.4 10 ^3/uL (0-0.8); Hematocrit 27.5 % (41.0-53.0); Hemoglobin 9.2 g/dL (13.5-17.5); Lymphocytes # (auto) 0.5 10 ^3/uL (0.4-5.4); Lymphocytes % (auto) 5.2 % (10.0-50.0); Mean Corpuscular Hemoglobin 31.7 pg (28.0-32.0); Mean Corpuscular Hgb Conc. 33.4 g/dL (32.0-36.0); Mean Corpuscular Volume 94.7 fL (80.0-100.0); Monocytes # (auto) 0.7 10 ^3/uL (0-1.3); Monocytes % (auto) 8.4 % (0.0-12.0); Neutrophils # (auto) 7.2 10 ^3/uL (1.6-8.6); Nucleated Red Blood Cells % 0.1 %; Potassium 3.6 mmol/L (3.5-5.1); Red Blood Cells 2.91 10^6/uL (4.5-5.90); Red Cell Distribution Width 15.7 % (11.8-14.3); White Blood Cell 8.8 10^3/uL (4.4-10.8)
[2020-12-31] MEDS: NOREPINEPHRINE 8 MG/250ML KIT 250 ML IV SCH (05:15)
[2020-12-31] MEDS: PIPERACILLIN-TAZOB 2.25GM 50 ML IV SCH ×3 (05:38→18:00)
[2020-12-31] MEDS: INSULIN LANTUS (GLARGINE) 1 /0.01ml (100units/ml) SC SCH ×2 (06:30→20:57)
[2020-12-31] MEDS: LACTULOSE 20Gm/30ML SOLN PO SCH ×3 (06:30→20:53)
[2020-12-31] MEDS ORDERED: BUMETANIDE 2.5mg/10ml (0.25 mg/ml) INJ IV ONE (07:15)
[2020-12-31] MEDS: FAMOTIDINE (10MG/ML) 2ML VL IV SCH (10:41)
[2020-12-31] MEDS: ENOXAPARIN SOD 30 MG/0.3 ML SYRINGE SC SCH (10:42)
[2020-12-31] MEDS: ASPirin 81 mg TAB PO SCH (10:42)
[2020-12-31] MEDS: SODIUM CHLOR 0.9% PF (SALINE LOCK) 10ML VIAL/SYR IV SCH ×2 (10:42→20:52)
[2020-12-31] MEDS ORDERED: METOCLOPRAMIDE HCL 5MG/ml INJ 2ml VIAL IV ONE (11:15)
[2020-12-31] MEDS: METOCLOPRAMIDE HCL 5MG/ml INJ 2ml VIAL IV SCH ×2 (20:51→21:18)
[2020-12-31] MEDS: LINEZOLID 600MG/300ML 300 ML IV SCH (20:54)
[2020-12-31] MEDS: ATORVASTATIN 20 MG TAB PO SCH (20:55)
[2021-01-01] VITALS (100 sets, daily range): BP systolic 89–174; BP diastolic 41–72
[2021-01-01] MEDS: PIPERACILLIN-TAZOB 2.25GM 50 ML IV SCH ×4 (00:50→18:00)
[2021-01-01] MEDS: ACCU-CHEK COMFORT CURVE STRIP VI SCH ×6 (00:50→22:47)
[2021-01-01] MEDS: LACTULOSE 20Gm/30ML SOLN PO SCH ×4 (00:53→18:00)
[2021-01-01] MEDS: ALBUTEROL SULF 2.5 MG/0.5ML(0.5%) NEB SOLN NEB SCH ×5 (02:16→22:17)
[2021-01-01] MEDS: InsuLIN REG 1unit/0.01ml Soln (100units/ml) SC SCH ×5 (04:00→22:48)
[2021-01-01] MEDS: NOREPINEPHRINE 8 MG/250ML KIT 250 ML IV SCH (05:15)
[2021-01-01] MEDS: INSULIN LANTUS (GLARGINE) 1 /0.01ml (100units/ml) SC SCH ×2 (06:06→22:51)
[2021-01-01 06:29] LABS: Hematocrit 32.2 % (41.0-53.0); Hemoglobin 10.7 g/dL (13.5-17.5); Mean Corpuscular Hemoglobin 31.8 pg (28.0-32.0); Mean Corpuscular Hgb Conc. 33.3 g/dL (32.0-36.0); Mean Corpuscular Volume 95.3 fL (80.0-100.0); Red Blood Cells 3.38 10^6/uL (4.5-5.90); Red Cell Distribution Width 15.2 % (11.8-14.3); White Blood Cell 10.7 10^3/uL (4.4-10.8)
[2021-01-01 06:37] LABS: Basophils % (manual) 0 (0.0-2.0); Blast Cells 0; Myelocytes % 0; Potassium 3.5 mmol/L (3.5-5.1); Promyelocytes % 0; Reactive Lymphocytes 0
[2021-01-01 06:42] LABS: BUN/Creatinine Ratio 9.6; Calcium 9.6 mg/dL (8.5-10.1)
[2021-01-01] MEDS ORDERED: SODIUM CHL 0.9% 1000 ML BAG XX ONE (07:00)
[2021-01-01] MEDS: MIDAZOLAM DRIP 50 mg/50mL 50 ML IV SCH ×4 (10:20→22:53)
[2021-01-01] MEDS: ASPirin 81 mg TAB PO SCH (10:42)
[2021-01-01] MEDS: LINEZOLID 600MG/300ML 300 ML IV SCH ×2 (10:42→22:50)
[2021-01-01] MEDS: FAMOTIDINE (10MG/ML) 2ML VL IV SCH (10:42)
[2021-01-01] MEDS: ENOXAPARIN SOD 30 MG/0.3 ML SYRINGE SC SCH (10:42)
[2021-01-01] MEDS: SODIUM CHLOR 0.9% PF (SALINE LOCK) 10ML VIAL/SYR IV SCH ×2 (10:42→22:50)
[2021-01-01 10:55] LABS: Band Neutrophils % (manual) 5; Lymphocytes % (manual) 6 (10.0-50.0); Metamyelocytes % 1
[2021-01-01 10:57] LABS: Eosinophils % (manual) 2 (0-7); Monocytes % (manual) 8 (0-12)
[2021-01-01] MEDS ORDERED: DOBUTamine 1000MCG/ML 250 ML IV SCH (14:00)
[2021-01-01] MEDS: METOCLOPRAMIDE HCL 5MG/ml INJ 2ml VIAL IV SCH ×2 (14:38→22:49)
[2021-01-01] MEDS: fentaNYL Drip 2500mCg/250mlNS 250 ML IV SCH (16:24)
[2021-01-01] MEDS: DOBUTamine 1000MCG/ML 250 ML IV SCH (17:30)
[2021-01-01] MEDS ORDERED: EPOETIN ALFA-EPBX 10,000 UNIT/1ML VIAL SC ONE (21:00)
[2021-01-01] MEDS: ATORVASTATIN 20 MG TAB PO SCH ×2 (22:00→22:50)
[2021-01-02] VITALS (99 sets, daily range): BP systolic 108–151; BP diastolic 40–64
[2021-01-02] MEDS: PIPERACILLIN-TAZOB 2.25GM 50 ML IV SCH ×4 (00:51→18:30)
[2021-01-02] MEDS: ACCU-CHEK COMFORT CURVE STRIP VI SCH ×6 (01:15→20:40)
[2021-01-02] MEDS: InsuLIN REG 1unit/0.01ml Soln (100units/ml) SC SCH ×6 (01:16→20:41)
[2021-01-02] MEDS: ALBUTEROL SULF 2.5 MG/0.5ML(0.5%) NEB SOLN NEB SCH ×6 (02:12→22:03)
[2021-01-02] MEDS: NOREPINEPHRINE 8 MG/250ML KIT 250 ML IV SCH (05:15)
[2021-01-02] MEDS ORDERED: PROPOFOL 100 ML IV ONE (05:15)
[2021-01-02] MEDS: PROPOFOL 100 ML IV SCH (05:30)
[2021-01-02] MEDS: LACTULOSE 20Gm/30ML SOLN PO SCH ×4 (05:49→18:00)
[2021-01-02 05:51] LABS: BUN/Creatinine Ratio 7.7; Calcium 8.8 mg/dL (8.5-10.1); Potassium 3.1 mmol/L (3.5-5.1)
[2021-01-02] MEDS: METOCLOPRAMIDE HCL 5MG/ml INJ 2ml VIAL IV SCH ×3 (05:58→21:30)
[2021-01-02] MEDS: fentaNYL Drip 2500mCg/250mlNS 250 ML IV SCH ×2 (05:59→18:17)
[2021-01-02] MEDS: DOBUTamine 1000MCG/ML 250 ML IV SCH ×2 (06:00→22:54)
[2021-01-02] MEDS: INSULIN LANTUS (GLARGINE) 1 /0.01ml (100units/ml) SC SCH ×2 (06:01→21:31)
[2021-01-02 06:23] LABS: Hematocrit 37.6 % (41.0-53.0); Hemoglobin 11.9 g/dL (13.5-17.5); Mean Corpuscular Hemoglobin 31.6 pg (28.0-32.0); Mean Corpuscular Hgb Conc. 31.6 g/dL (32.0-36.0); Red Blood Cells 3.76 10^6/uL (4.5-5.90); Red Cell Distribution Width 16.2 % (11.8-14.3); White Blood Cell 13.3 10^3/uL (4.4-10.8)
[2021-01-02 06:34] LABS: Basophils % (manual) 0 (0.0-2.0); Blast Cells 0; Promyelocytes % 0; Reactive Lymphocytes 0
[2021-01-02 07:16] LABS: Band Neutrophils % (manual) 5; Eosinophils % (manual) 4 (0-7); Lymphocytes % (manual) 3 (10.0-50.0); Metamyelocytes % 1; Monocytes % (manual) 2 (0-12); Myelocytes % 1
[2021-01-02] MEDS: MIDAZOLAM DRIP 50 mg/50mL 50 ML IV SCH ×4 (08:30→22:55)
[2021-01-02] MEDS ORDERED: MIDAZOLAM DRIP 50 mg/50mL 50 ML IV ONE (08:30)
[2021-01-02] MEDS: SODIUM CHLOR 0.9% PF (SALINE LOCK) 10ML VIAL/SYR IV SCH ×2 (10:00→21:30)
[2021-01-02] MEDS ORDERED: BUMETANIDE 2.5mg/10ml (0.25 mg/ml) INJ IV ONE (10:45)
[2021-01-02] MEDS: LINEZOLID 600MG/300ML 300 ML IV SCH ×2 (10:49→21:30)
[2021-01-02] MEDS: FAMOTIDINE (10MG/ML) 2ML VL IV SCH (10:49)
[2021-01-02] MEDS: ENOXAPARIN SOD 30 MG/0.3 ML SYRINGE SC SCH (10:50)
[2021-01-02] MEDS: ASPirin 81 mg TAB PO SCH (10:51)
[2021-01-02] MEDS: POTASSIUM CHL 20MEQ/50ML 50 ML IV SCH ×3 (12:27→14:10)
[2021-01-02] MEDS ORDERED: FUROSEMIDE INJECTION 100 MG in SODIUM CHL 0.9% 100 ML IV SCH (16:30)
[2021-01-02 20:19] LABS: Basophils # (auto) 0 10 ^3/uL (0-0.2); Basophils % (auto) 0.4 % (0.0-2.0); Eosinophils # (auto) 0.5 10 ^3/uL (0-0.8); Eosinophils % (auto) 4.3 % (0.0-7.0); Hematocrit 32.2 % (41.0-53.0); Hemoglobin 10.6 g/dL (13.5-17.5); Lymphocytes # (auto) 0.4 10 ^3/uL (0.4-5.4); Lymphocytes % (auto) 3.8 % (10.0-50.0); Mean Corpuscular Hemoglobin 30.9 pg (28.0-32.0); Mean Corpuscular Hgb Conc. 32.8 g/dL (32.0-36.0); Mean Corpuscular Volume 94.2 fL (80.0-100.0); Neutrophils # (auto) 9.2 10 ^3/uL (1.6-8.6); Neutrophils % (auto) 82.5 % (37.0-80.0); Red Blood Cells 3.42 10^6/uL (4.5-5.90); Red Cell Distribution Width 15.5 % (11.8-14.3); White Blood Cell 11.2 10^3/uL (4.4-10.8)
[2021-01-02] MEDS: FUROSEMIDE INJECTION 500 MG in SODIUM CHL 0.9% 500 ML IV SCH (20:35)
[2021-01-02] MEDS: ATORVASTATIN 20 MG TAB PO SCH (21:32)
[2021-01-03] VITALS (106 sets, daily range): BP systolic 91–136; BP diastolic 39–59
[2021-01-03] MEDS: PIPERACILLIN-TAZOB 2.25GM 50 ML IV SCH ×4 (00:18→18:24)
[2021-01-03] MEDS: ACCU-CHEK COMFORT CURVE STRIP VI SCH ×7 (01:17→23:38)
[2021-01-03] MEDS: InsuLIN REG 1unit/0.01ml Soln (100units/ml) SC SCH ×7 (01:18→23:38)
[2021-01-03] MEDS: ALBUTEROL SULF 2.5 MG/0.5ML(0.5%) NEB SOLN NEB SCH ×6 (02:25→22:14)
[2021-01-03] MEDS: NOREPINEPHRINE 8 MG/250ML KIT 250 ML IV SCH (05:15)
[2021-01-03 05:17] LABS: Hematocrit 29.2 % (41.0-53.0); Hemoglobin 9.8 g/dL (13.5-17.5); Mean Corpuscular Hemoglobin 31.5 pg (28.0-32.0); Mean Corpuscular Hgb Conc. 33.5 g/dL (32.0-36.0); Mean Corpuscular Volume 93.9 fL (80.0-100.0); Red Blood Cells 3.11 10^6/uL (4.5-5.90); Red Cell Distribution Width 15.4 % (11.8-14.3); White Blood Cell 9.4 10^3/uL (4.4-10.8)
[2021-01-03 05:32] LABS: Calcium 8.6 mg/dL (8.5-10.1); Potassium 3.6 mmol/L (3.5-5.1)
[2021-01-03 05:35] LABS: BUN/Creatinine Ratio 7.7
[2021-01-03 05:55] LABS: Basophils % (manual) 0 (0.0-2.0); Blast Cells 0; Metamyelocytes % 0; Promyelocytes % 0; Reactive Lymphocytes 0
[2021-01-03] MEDS: LACTULOSE 20Gm/30ML SOLN PO SCH ×5 (06:00→23:21)
[2021-01-03] MEDS: PROPOFOL 100 ML IV SCH ×2 (06:05→18:24)
[2021-01-03] MEDS: INSULIN LANTUS (GLARGINE) 1 /0.01ml (100units/ml) SC SCH ×2 (06:06→22:56)
[2021-01-03] MEDS: METOCLOPRAMIDE HCL 5MG/ml INJ 2ml VIAL IV SCH ×3 (06:08→22:56)
[2021-01-03] MEDS: fentaNYL Drip 2500mCg/250mlNS 250 ML IV SCH ×2 (06:09→18:25)
[2021-01-03] MEDS: MIDAZOLAM DRIP 50 mg/50mL 50 ML IV SCH ×5 (06:32→23:21)
[2021-01-03 06:44] LABS: Band Neutrophils % (manual) 2; Eosinophils % (manual) 5 (0-7); Lymphocytes % (manual) 4 (10.0-50.0); Monocytes % (manual) 7 (0-12); Myelocytes % 1
[2021-01-03] MEDS: FUROSEMIDE INJECTION 500 MG in SODIUM CHL 0.9% 500 ML IV SCH ×2 (08:45→19:43)
[2021-01-03] MEDS: SODIUM CHLOR 0.9% PF (SALINE LOCK) 10ML VIAL/SYR IV SCH ×2 (10:10→21:34)
[2021-01-03] MEDS: FAMOTIDINE (10MG/ML) 2ML VL IV SCH (10:10)
[2021-01-03] MEDS: LINEZOLID 600MG/300ML 300 ML IV SCH ×2 (10:11→21:35)
[2021-01-03] MEDS: ASPirin 81 mg TAB PO SCH (10:11)
[2021-01-03] MEDS: ENOXAPARIN SOD 30 MG/0.3 ML SYRINGE SC SCH (10:12)
[2021-01-03] MEDS: DOBUTamine 1000MCG/ML 250 ML IV SCH (13:15)
[2021-01-03] MEDS: ATORVASTATIN 20 MG TAB PO SCH (21:35)
[2021-01-04] VITALS (103 sets, daily range): BP systolic 70–222; BP diastolic 28–85
[2021-01-04] MEDS: PIPERACILLIN-TAZOB 2.25GM 50 ML IV SCH ×2 (01:00→05:44)
[2021-01-04] MEDS: ALBUTEROL SULF 2.5 MG/0.5ML(0.5%) NEB SOLN NEB SCH ×3 (02:46→09:43)
[2021-01-04] MEDS: MIDAZOLAM DRIP 50 mg/50mL 50 ML IV SCH ×2 (03:20→06:54)
[2021-01-04] MEDS: NOREPINEPHRINE 8 MG/250ML KIT 250 ML IV SCH ×2 (03:20→22:05)
[2021-01-04] MEDS: ACCU-CHEK COMFORT CURVE STRIP VI SCH ×5 (04:00→20:28)
[2021-01-04 04:29] LABS: Hematocrit 29.4 % (41.0-53.0); Mean Corpuscular Hemoglobin 31.9 pg (28.0-32.0); Mean Corpuscular Hgb Conc. 34.1 g/dL (32.0-36.0); Mean Corpuscular Volume 93.8 fL (80.0-100.0); Red Blood Cells 3.13 10^6/uL (4.5-5.90); Red Cell Distribution Width 15.4 % (11.8-14.3); White Blood Cell 9.4 10^3/uL (4.4-10.8)
[2021-01-04 04:33] LABS: Basophils % (manual) 0 (0.0-2.0); Blast Cells 0; Metamyelocytes % 0; Promyelocytes % 0; Reactive Lymphocytes 0
[2021-01-04 04:45] LABS: INR 1.06 (0.9-1.15)
[2021-01-04 04:48] LABS: Albumin 1.9 g/dL (3.4-5.0); BUN/Creatinine Ratio 7.1; Calcium 8.4 mg/dL (8.5-10.1); Potassium 3.9 mmol/L (3.5-5.1)
[2021-01-04 04:50] LABS: Bilirubin, Total 0.4 mg/dL (0.2-1.0); Total Protein 6.8 g/dL (6.4-8.2)
[2021-01-04 05:09] LABS: Band Neutrophils % (manual) 21; Lymphocytes % (manual) 6 (10.0-50.0); Myelocytes % 1
[2021-01-04 05:10] LABS: Eosinophils % (manual) 8 (0-7); Monocytes % (manual) 6 (0-12)
[2021-01-04] MEDS: InsuLIN REG 1unit/0.01ml Soln (100units/ml) SC SCH ×5 (05:43→20:29)
[2021-01-04] MEDS: LACTULOSE 20Gm/30ML SOLN PO SCH ×3 (05:47→18:00)
[2021-01-04] MEDS: METOCLOPRAMIDE HCL 5MG/ml INJ 2ml VIAL IV SCH ×3 (05:48→22:04)
[2021-01-04] MEDS: INSULIN LANTUS (GLARGINE) 1 /0.01ml (100units/ml) SC SCH ×2 (06:11→22:00)
[2021-01-04] MEDS: DOBUTamine 1000MCG/ML 250 ML IV SCH ×2 (06:54→22:46)
[2021-01-04] MEDS: fentaNYL Drip 2500mCg/250mlNS 250 ML IV SCH (06:55)
[2021-01-04] MEDS ORDERED: SODIUM CHL 0.9% 1000 ML BAG XX ONE (07:00)
[2021-01-04] MEDS: FUROSEMIDE INJECTION 500 MG in SODIUM CHL 0.9% 500 ML IV SCH ×2 (08:49→20:30)
[2021-01-04] MEDS: ALBUMIN 25% 100 ML IV SCH ×2 (10:00→11:00)
[2021-01-04] MEDS: ENOXAPARIN SOD 30 MG/0.3 ML SYRINGE SC SCH (10:00)
[2021-01-04] MEDS: FAMOTIDINE (10MG/ML) 2ML VL IV SCH (10:00)
[2021-01-04] MEDS: ASPirin 81 mg TAB PO SCH (10:00)
[2021-01-04] MEDS: SODIUM CHLOR 0.9% PF (SALINE LOCK) 10ML VIAL/SYR IV SCH ×2 (10:00→22:04)
[2021-01-04] MEDS ORDERED: FLUCONAZOLE 200MG/100ML 100 ML IV ONE (10:15)
[2021-01-04] MEDS: LINEZOLID 600MG/300ML 300 ML IV SCH ×2 (11:55→22:03)
[2021-01-04] MEDS ORDERED: IOHEXOL 350 MG/ML 100ML IJ ONE ×2 (13:03→13:07)
[2021-01-04] MEDS ORDERED: HEPARIN IN NS 1000Units/500mL 0 ML ONE (13:04)
[2021-01-04] MEDS ORDERED: LIDOCAINE 2%HCL (LOCAL ANESTH.) INJ 20ML MDV ONE (13:04)
[2021-01-04] MEDS: MEROPENEM 1GM IVPB 100 ML IV SCH (14:00)
[2021-01-04] MEDS: ATORVASTATIN 20 MG TAB PO SCH (21:56)
[2021-01-04] MEDS: PROPOFOL 100 ML IV SCH (22:03)
[2021-01-05] VITALS (85 sets, daily range): BP systolic 70–155; BP diastolic 36–66
[2021-01-05] MEDS: ACCU-CHEK COMFORT CURVE STRIP VI SCH ×7 (00:07→23:21)
[2021-01-05] MEDS: InsuLIN REG 1unit/0.01ml Soln (100units/ml) SC SCH ×7 (00:13→23:27)
[2021-01-05] MEDS: MEROPENEM 1GM IVPB 100 ML IV SCH (00:15)
[2021-01-05] MEDS: PROPOFOL 100 ML IV SCH (03:00)
[2021-01-05] MEDS: fentaNYL Drip 2500mCg/250mlNS 250 ML IV SCH (05:10)
[2021-01-05] MEDS: LACTULOSE 20Gm/30ML SOLN PO SCH ×5 (06:08→23:20)
[2021-01-05] MEDS: METOCLOPRAMIDE HCL 5MG/ml INJ 2ml VIAL IV SCH ×3 (06:08→22:46)
[2021-01-05] MEDS: INSULIN LANTUS (GLARGINE) 1 /0.01ml (100units/ml) SC SCH ×2 (07:14→23:20)
[2021-01-05 07:35] LABS: Basophils # (auto) 0 10 ^3/uL (0-0.2); Basophils % (auto) 0.4 % (0.0-2.0); Eosinophils # (auto) 0.5 10 ^3/uL (0-0.8); Eosinophils % (auto) 4.9 % (0.0-7.0); Hematocrit 29.8 % (41.0-53.0); Lymphocytes # (auto) 0.3 10 ^3/uL (0.4-5.4); Lymphocytes % (auto) 3.2 % (10.0-50.0); Mean Corpuscular Hemoglobin 31.6 pg (28.0-32.0); Mean Corpuscular Hgb Conc. 33.4 g/dL (32.0-36.0); Mean Corpuscular Volume 94.4 fL (80.0-100.0); Monocytes # (auto) 0.5 10 ^3/uL (0-1.3); Monocytes % (auto) 4.9 % (0.0-12.0); Neutrophils % (auto) 86.6 % (37.0-80.0); Nucleated Red Blood Cells % 0.1 %; Red Blood Cells 3.15 10^6/uL (4.5-5.90); Red Cell Distribution Width 15.2 % (11.8-14.3); White Blood Cell 10.5 10^3/uL (4.4-10.8)
[2021-01-05 07:46] LABS: BUN/Creatinine Ratio 6.6; Calcium 8.2 mg/dL (8.5-10.1); Potassium 3.3 mmol/L (3.5-5.1)
[2021-01-05] MEDS ORDERED: methylPREDNISolone SOD SUCC 125 MG/2 ML VL IV ONE (09:00)
[2021-01-05] MEDS: MIDAZOLAM DRIP 50 mg/50mL 50 ML IV SCH ×2 (09:10→22:48)
[2021-01-05] MEDS: FUROSEMIDE INJECTION 500 MG in SODIUM CHL 0.9% 500 ML IV SCH (09:11)
[2021-01-05] MEDS: POTASSIUM CHL 20MEQ/100ML 100 ML IV SCH ×2 (10:28→12:10)
[2021-01-05] MEDS: FLUCONAZOLE 200MG/100ML 100 ML IV SCH (10:28)
[2021-01-05] MEDS: ENOXAPARIN SOD 100 MG/1 ML SYRINGE SC SCH (10:29)
[2021-01-05] MEDS: SODIUM CHLOR 0.9% PF (SALINE LOCK) 10ML VIAL/SYR IV SCH ×2 (10:29→22:45)
[2021-01-05] MEDS: FAMOTIDINE (10MG/ML) 2ML VL IV SCH (10:29)
[2021-01-05] MEDS: ASPirin 81 mg TAB PO SCH (10:29)
[2021-01-05] MEDS: LINEZOLID 600MG/300ML 300 ML IV SCH ×2 (11:28→22:46)
[2021-01-05] MEDS: MEROPENEM 500MG IVPB 50 ML IV SCH ×2 (13:30→23:22)
[2021-01-05] MEDS: methylPREDNISolone SOD SUCC 40 MG/ML VL IV SCH (22:46)
[2021-01-05] MEDS: ATORVASTATIN 20 MG TAB PO SCH (22:47)
[2021-01-06] VITALS (102 sets, daily range): BP systolic 71–143; BP diastolic 37–68
[2021-01-06] MEDS: PROPOFOL 100 ML IV SCH ×4 (05:15→21:52)
[2021-01-06] MEDS: NOREPINEPHRINE 8 MG/250ML KIT 250 ML IV SCH ×2 (05:15→21:49)
[2021-01-06] MEDS: ACCU-CHEK COMFORT CURVE STRIP VI SCH ×6 (05:47→23:37)
[2021-01-06] MEDS: InsuLIN REG 1unit/0.01ml Soln (100units/ml) SC SCH ×6 (05:48→23:44)
[2021-01-06] MEDS: MIDAZOLAM DRIP 50 mg/50mL 50 ML IV SCH ×2 (05:50→23:26)
[2021-01-06] MEDS: fentaNYL Drip 2500mCg/250mlNS 250 ML IV SCH (05:51)
[2021-01-06] MEDS: METOCLOPRAMIDE HCL 5MG/ml INJ 2ml VIAL IV SCH ×3 (05:52→21:23)
[2021-01-06] MEDS: LACTULOSE 20Gm/30ML SOLN PO SCH ×4 (05:52→23:37)
[2021-01-06] MEDS: INSULIN LANTUS (GLARGINE) 1 /0.01ml (100units/ml) SC SCH ×2 (05:53→21:24)
[2021-01-06 06:19] LABS: BUN/Creatinine Ratio 8.8; Calcium 8.5 mg/dL (8.5-10.1); Potassium 4.1 mmol/L (3.5-5.1)
[2021-01-06 06:25] LABS: Hemoglobin 9.7 g/dL (13.5-17.5); Mean Corpuscular Hgb Conc. 33.5 g/dL (32.0-36.0); Mean Corpuscular Volume 95.8 fL (80.0-100.0); Red Blood Cells 3.02 10^6/uL (4.5-5.90); Red Cell Distribution Width 15.9 % (11.8-14.3); White Blood Cell 6.8 10^3/uL (4.4-10.8)
[2021-01-06 06:32] LABS: Basophils % (manual) 0 (0.0-2.0); Blast Cells 0; Promyelocytes % 0; Reactive Lymphocytes 0
[2021-01-06] MEDS ORDERED: SODIUM CHL 0.9% 1000 ML BAG XX ONE (07:00)
[2021-01-06] MEDS: ALBUMIN 25% 100 ML IV SCH ×4 (09:14→23:37)
[2021-01-06] MEDS: FLUCONAZOLE 200MG/100ML 100 ML IV SCH (10:13)
[2021-01-06] MEDS: methylPREDNISolone SOD SUCC 40 MG/ML VL IV SCH ×2 (10:14→21:23)
[2021-01-06] MEDS: SODIUM CHLOR 0.9% PF (SALINE LOCK) 10ML VIAL/SYR IV SCH ×2 (10:14→21:23)
[2021-01-06] MEDS: ENOXAPARIN SOD 100 MG/1 ML SYRINGE SC SCH (10:14)
[2021-01-06] MEDS: LINEZOLID 600MG/300ML 300 ML IV SCH ×2 (10:14→21:23)
[2021-01-06] MEDS: ASPirin 81 mg TAB PO SCH (10:14)
[2021-01-06] MEDS: FAMOTIDINE (10MG/ML) 2ML VL IV SCH (10:14)
[2021-01-06 11:52] LABS: Band Neutrophils % (manual) 8; Eosinophils % (manual) 1 (0-7); Lymphocytes % (manual) 8 (10.0-50.0); Metamyelocytes % 1; Monocytes % (manual) 1 (0-12); Myelocytes % 2
[2021-01-06] MEDS: MEROPENEM 500MG IVPB 50 ML IV SCH (12:20)
[2021-01-06] MEDS: SILDENAFIL CITRATE 20 MG TAB PO SCH (20:11)
[2021-01-06] MEDS ORDERED: EPOETIN ALFA-EPBX 10,000 UNIT/1ML VIAL SC ONE (21:00)
[2021-01-06] MEDS: ATORVASTATIN 20 MG TAB PO SCH (21:23)
[2021-01-07] VITALS (90 sets, daily range): BP systolic 72–135; BP diastolic 31–66
[2021-01-07] MEDS: PROPOFOL 100 ML IV SCH ×5 (00:35→23:05)
[2021-01-07] MEDS: MEROPENEM 500MG IVPB 50 ML IV SCH ×3 (01:04→23:07)
[2021-01-07] MEDS: InsuLIN REG 1unit/0.01ml Soln (100units/ml) SC SCH ×6 (03:55→23:17)
[2021-01-07] MEDS: ACCU-CHEK COMFORT CURVE STRIP VI SCH ×6 (03:55→23:17)
[2021-01-07] MEDS: MIDAZOLAM DRIP 50 mg/50mL 50 ML IV SCH ×3 (04:07→22:31)
[2021-01-07] MEDS: LACTULOSE 20Gm/30ML SOLN PO SCH (05:03)
[2021-01-07 05:04] LABS: Albumin 2.2 g/dL (3.4-5.0); Potassium 3.1 mmol/L (3.5-5.1)
[2021-01-07 05:09] LABS: Bilirubin, Total 1.7 mg/dL (0.2-1.0)
[2021-01-07] MEDS: METOCLOPRAMIDE HCL 5MG/ml INJ 2ml VIAL IV SCH ×3 (06:23→21:03)
[2021-01-07] MEDS: INSULIN LANTUS (GLARGINE) 1 /0.01ml (100units/ml) SC SCH ×2 (06:23→21:04)
[2021-01-07] MEDS: fentaNYL Drip 2500mCg/250mlNS 250 ML IV SCH ×2 (06:24→11:00)
[2021-01-07 06:26] LABS: Calcium 5.1 mg/dL (8.5-10.1)
[2021-01-07 06:33] LABS: BUN/Creatinine Ratio 11.7
[2021-01-07 06:40] LABS: Total Protein 5.2 g/dL (6.4-8.2)
[2021-01-07 07:07] LABS: Hematocrit 19.7 % (41.0-53.0); Hemoglobin 7.6 g/dL (13.5-17.5); Mean Corpuscular Hemoglobin 38.3 pg (28.0-32.0); Mean Corpuscular Volume 99.3 fL (80.0-100.0); Red Blood Cells 1.98 10^6/uL (4.5-5.90); Red Cell Distribution Width 16.7 % (11.8-14.3); White Blood Cell 5.7 10^3/uL (4.4-10.8)
[2021-01-07 07:10] LABS: Mean Corpuscular Hgb Conc. 38.5 g/dL (32.0-36.0)
[2021-01-07 07:12] LABS: Basophils % (manual) 0 (0.0-2.0); Blast Cells 0; Eosinophils % (manual) 0 (0-7); Promyelocytes % 0; Reactive Lymphocytes 0
[2021-01-07] MEDS ORDERED: CALCIUM GLUC 1,000mg/50ml-NS 50 ML IV ONE ×3 (07:15→09:00)
[2021-01-07] MEDS: SILDENAFIL CITRATE 20 MG TAB PO SCH ×3 (08:04→20:41)
[2021-01-07] MEDS: ALBUMIN 25% 100 ML IV SCH (08:05)
[2021-01-07 08:07] LABS: Band Neutrophils % (manual) 13; Lymphocytes % (manual) 3 (10.0-50.0); Metamyelocytes % 2; Monocytes % (manual) 2 (0-12); Myelocytes % 1
[2021-01-07] MEDS: SODIUM CHLOR 0.9% PF (SALINE LOCK) 10ML VIAL/SYR IV SCH ×2 (10:00→21:04)
[2021-01-07] MEDS: POTASSIUM CHL 20MEQ/100ML 100 ML IV SCH ×2 (11:36→12:00)
[2021-01-07] MEDS: ASPirin 81 mg TAB PO SCH (11:37)
[2021-01-07] MEDS: FLUCONAZOLE 200MG/100ML 100 ML IV SCH (11:37)
[2021-01-07] MEDS: FAMOTIDINE (10MG/ML) 2ML VL IV SCH (11:37)
[2021-01-07] MEDS ORDERED: methylPREDNISolone SOD SUCC 40 MG/ML VL IV ONE (11:45)
[2021-01-07] MEDS ORDERED: SODIUM BICARBONATE 8.4 % INJ 50ML VIAL IV ONE (15:45)
[2021-01-07] MEDS: ATORVASTATIN 20 MG TAB PO SCH (21:04)
[2021-01-07] MEDS: methylPREDNISolone SOD SUCC 40 MG/ML VL IV SCH (21:04)
[2021-01-08] VITALS (102 sets, daily range): BP systolic 91–155; BP diastolic 26–55
[2021-01-08] MEDS: NOREPINEPHRINE 8 MG/250ML KIT 250 ML IV SCH ×2 (01:02→21:30)
[2021-01-08] MEDS: PROPOFOL 100 ML IV SCH ×6 (02:28→23:30)
[2021-01-08] MEDS: MIDAZOLAM DRIP 50 mg/50mL 50 ML IV SCH ×6 (02:29→22:30)
[2021-01-08] MEDS: ACCU-CHEK COMFORT CURVE STRIP VI SCH ×5 (04:23→20:00)
[2021-01-08] MEDS: InsuLIN REG 1unit/0.01ml Soln (100units/ml) SC SCH ×5 (04:23→20:00)
[2021-01-08 04:55] LABS: Hematocrit 26.7 % (41.0-53.0); Hemoglobin 9.1 g/dL (13.5-17.5); Mean Corpuscular Hemoglobin 32.2 pg (28.0-32.0); Mean Corpuscular Volume 94.7 fL (80.0-100.0); Red Blood Cells 2.82 10^6/uL (4.5-5.90); White Blood Cell 11.5 10^3/uL (4.4-10.8)
[2021-01-08 05:01] LABS: Basophils % (manual) 0 (0.0-2.0); Blast Cells 0; Eosinophils % (manual) 0 (0-7); Promyelocytes % 0; Reactive Lymphocytes 0
[2021-01-08 05:18] LABS: Calcium 8.4 mg/dL (8.5-10.1); Potassium 4.5 mmol/L (3.5-5.1)
[2021-01-08] MEDS: METOCLOPRAMIDE HCL 5MG/ml INJ 2ml VIAL IV SCH ×3 (05:20→22:00)
[2021-01-08 05:23] LABS: Albumin 3.3 g/dL (3.4-5.0); BUN/Creatinine Ratio 14.4; Bilirubin, Total 1.6 mg/dL (0.2-1.0); Total Protein 7.1 g/dL (6.4-8.2)
[2021-01-08] MEDS: fentaNYL Drip 2500mCg/250mlNS 250 ML IV SCH ×2 (05:27→18:52)
[2021-01-08] MEDS: INSULIN LANTUS (GLARGINE) 1 /0.01ml (100units/ml) SC SCH ×2 (06:28→22:00)
[2021-01-08 06:56] LABS: Band Neutrophils % (manual) 17; Lymphocytes % (manual) 6 (10.0-50.0); Metamyelocytes % 2; Monocytes % (manual) 3 (0-12); Myelocytes % 2
[2021-01-08] MEDS ORDERED: SODIUM CHL 0.9% 1000 ML BAG XX ONE (07:00)
[2021-01-08] MEDS: SILDENAFIL CITRATE 20 MG TAB PO SCH ×3 (07:44→20:00)
[2021-01-08] MEDS: SODIUM CHLOR 0.9% PF (SALINE LOCK) 10ML VIAL/SYR IV SCH ×2 (10:00→22:00)
[2021-01-08] MEDS ORDERED: ALBUMIN 25% 200 ML IV ONE (10:27)
[2021-01-08] MEDS: FAMOTIDINE (10MG/ML) 2ML VL IV SCH (12:50)
[2021-01-08] MEDS: methylPREDNISolone SOD SUCC 40 MG/ML VL IV SCH ×2 (12:50→22:00)
[2021-01-08] MEDS: ASPirin 81 mg TAB PO SCH (12:50)
[2021-01-08] MEDS: FLUCONAZOLE 200MG/100ML 100 ML IV SCH (12:50)
[2021-01-08] MEDS: MEROPENEM 500MG IVPB 50 ML IV SCH (12:50)
[2021-01-08] MEDS ORDERED: EPOETIN ALFA-EPBX 10,000 UNIT/1ML VIAL SC ONE (21:00)
[2021-01-08] MEDS: ATORVASTATIN 20 MG TAB PO SCH (22:00)
[2021-01-09] VITALS (91 sets, daily range): BP systolic 98–178; BP diastolic 25–75
[2021-01-09] MEDS: MIDAZOLAM DRIP 50 mg/50mL 50 ML IV SCH ×2 (03:00→23:22)
[2021-01-09] MEDS: ACCU-CHEK COMFORT CURVE STRIP VI SCH ×6 (04:00→20:33)
[2021-01-09] MEDS: InsuLIN REG 1unit/0.01ml Soln (100units/ml) SC SCH ×6 (04:00→20:57)
[2021-01-09 05:09] LABS: Hematocrit 25.4 % (41.0-53.0); Hemoglobin 8.7 g/dL (13.5-17.5); Mean Corpuscular Hemoglobin 32.5 pg (28.0-32.0); Mean Corpuscular Hgb Conc. 34.1 g/dL (32.0-36.0); Mean Corpuscular Volume 95.2 fL (80.0-100.0); Red Blood Cells 2.66 10^6/uL (4.5-5.90); White Blood Cell 11.9 10^3/uL (4.4-10.8)
[2021-01-09 05:28] LABS: Potassium 4.7 mmol/L (3.5-5.1)
[2021-01-09 05:38] LABS: Albumin 3.4 g/dL (3.4-5.0); BUN/Creatinine Ratio 16.3; Bilirubin, Total 1.3 mg/dL (0.2-1.0); Total Protein 6.7 g/dL (6.4-8.2)
[2021-01-09 05:40] LABS: Basophils % (manual) 0 (0.0-2.0); Blast Cells 0; Eosinophils % (manual) 0 (0-7); Promyelocytes % 0; Reactive Lymphocytes 0
[2021-01-09] MEDS: METOCLOPRAMIDE HCL 5MG/ml INJ 2ml VIAL IV SCH ×3 (05:53→22:06)
[2021-01-09 06:20] LABS: Lymphocytes % (manual) 7 (10.0-50.0); Monocytes % (manual) 3 (0-12)
[2021-01-09 06:21] LABS: Band Neutrophils % (manual) 9; Metamyelocytes % 1; Myelocytes % 1
[2021-01-09] MEDS: INSULIN LANTUS (GLARGINE) 1 /0.01ml (100units/ml) SC SCH ×2 (06:32→22:20)
[2021-01-09] MEDS: NOREPINEPHRINE 8 MG/250ML KIT 250 ML IV SCH ×3 (06:39→23:23)
[2021-01-09] MEDS: SILDENAFIL CITRATE 20 MG TAB PO SCH ×3 (08:26→20:33)
[2021-01-09] MEDS: FLUCONAZOLE 200MG/100ML 100 ML IV SCH (08:28)
[2021-01-09] MEDS: FAMOTIDINE (10MG/ML) 2ML VL IV SCH (08:29)
[2021-01-09] MEDS: SODIUM CHLOR 0.9% PF (SALINE LOCK) 10ML VIAL/SYR IV SCH ×2 (08:29→22:07)
[2021-01-09] MEDS: methylPREDNISolone SOD SUCC 40 MG/ML VL IV SCH ×2 (08:29→22:07)
[2021-01-09] MEDS: ASPirin 81 mg TAB PO SCH (08:29)
[2021-01-09] MEDS: MEROPENEM 500MG IVPB 50 ML IV SCH ×2 (12:29)
[2021-01-09] MEDS: SODIUM BICARBONATE 50ML VIAL 50 ML in SOD CHL 0.45% 1,000 ML IV SCH (14:27)
[2021-01-09] MEDS: ATORVASTATIN 20 MG TAB PO SCH (22:07)
[2021-01-09] MEDS: fentaNYL Drip 2500mCg/250mlNS 250 ML IV SCH (23:24)
[2021-01-10] VITALS (104 sets, daily range): BP systolic 90–160; BP diastolic 13–69
[2021-01-10] MEDS: InsuLIN REG 1unit/0.01ml Soln (100units/ml) SC SCH ×6 (04:00→21:46)
[2021-01-10] MEDS: ACCU-CHEK COMFORT CURVE STRIP VI SCH ×6 (04:00→21:41)
[2021-01-10] MEDS: NOREPINEPHRINE 8 MG/250ML KIT 250 ML IV SCH (05:01)
[2021-01-10] MEDS: PROPOFOL 100 ML IV SCH (05:15)
[2021-01-10 05:51] LABS: Potassium 5.3 mmol/L (3.5-5.1)
[2021-01-10 05:56] LABS: BUN/Creatinine Ratio 16.5; Calcium 7.7 mg/dL (8.5-10.1)
[2021-01-10 05:57] LABS: Basophils # (auto) 0 10 ^3/uL (0-0.2); Basophils % (auto) 0.1 % (0.0-2.0); Eosinophils # (auto) 0 10 ^3/uL (0-0.8); Hematocrit 26.2 % (41.0-53.0); Hemoglobin 8.7 g/dL (13.5-17.5); Lymphocytes # (auto) 1.1 10 ^3/uL (0.4-5.4); Lymphocytes % (auto) 6.4 % (10.0-50.0); Mean Corpuscular Hemoglobin 31.9 pg (28.0-32.0); Mean Corpuscular Hgb Conc. 33.3 g/dL (32.0-36.0); Mean Corpuscular Volume 95.9 fL (80.0-100.0); Monocytes # (auto) 1.4 10 ^3/uL (0-1.3); Neutrophils # (auto) 15.3 10 ^3/uL (1.6-8.6); Neutrophils % (auto) 85.5 % (37.0-80.0); Nucleated Red Blood Cells % 0.9 %; Red Blood Cells 2.74 10^6/uL (4.5-5.90); Red Cell Distribution Width 16.2 % (11.8-14.3); White Blood Cell 17.9 10^3/uL (4.4-10.8)
[2021-01-10 05:58] LABS: Bilirubin, Total 2.1 mg/dL (0.2-1.0); Total Protein 6.7 g/dL (6.4-8.2)
[2021-01-10] MEDS: METOCLOPRAMIDE HCL 5MG/ml INJ 2ml VIAL IV SCH ×3 (06:13→21:51)
[2021-01-10] MEDS: INSULIN LANTUS (GLARGINE) 1 /0.01ml (100units/ml) SC SCH ×2 (06:18→21:53)
[2021-01-10] MEDS: SILDENAFIL CITRATE 20 MG TAB PO SCH ×3 (08:27→21:40)
[2021-01-10] MEDS ORDERED: SODIUM CHL 0.9% 1000 ML BAG XX ONE (09:15)
[2021-01-10] MEDS: SODIUM BICARBONATE 50ML VIAL 50 ML in SOD CHL 0.45% 1,000 ML IV SCH (10:18)
[2021-01-10] MEDS: FLUCONAZOLE 200MG/100ML 100 ML IV SCH (10:19)
[2021-01-10] MEDS: methylPREDNISolone SOD SUCC 40 MG/ML VL IV SCH ×2 (10:19→22:02)
[2021-01-10] MEDS: ASPirin 81 mg TAB PO SCH (10:19)
[2021-01-10] MEDS: SODIUM CHLOR 0.9% PF (SALINE LOCK) 10ML VIAL/SYR IV SCH ×2 (10:19→21:51)
[2021-01-10] MEDS: FAMOTIDINE (10MG/ML) 2ML VL IV SCH (10:19)
[2021-01-10] MEDS: MEROPENEM 500MG IVPB 50 ML IV SCH ×2 (11:46)
[2021-01-10] MEDS: MIDAZOLAM DRIP 50 mg/50mL 50 ML IV SCH (13:24)
[2021-01-10] MEDS: VASOPRESSIN 50 UNITS in D5W 5% 247.5 ML IV SCH (15:29)
[2021-01-10] MEDS: PHENYLEPHRINE IV 250 ML IV SCH (18:43)
[2021-01-10] MEDS ORDERED: EPOETIN ALFA-EPBX 10,000 UNIT/1ML VIAL SC ONE (21:00)
[2021-01-10] MEDS: ATORVASTATIN 20 MG TAB PO SCH (21:52)
[2021-01-11] VITALS (86 sets, daily range): BP systolic 73–142; BP diastolic 14–63
[2021-01-11 05:07] LABS: Hematocrit 23.7 % (41.0-53.0); Hemoglobin 8.3 g/dL (13.5-17.5); Mean Corpuscular Volume 94.3 fL (80.0-100.0); Red Blood Cells 2.51 10^6/uL (4.5-5.90); Red Cell Distribution Width 16.1 % (11.8-14.3); White Blood Cell 22.5 10^3/uL (4.4-10.8)
[2021-01-11 05:25] LABS: Basophils % (manual) 0 (0.0-2.0); Blast Cells 0; Eosinophils % (manual) 0 (0-7); Promyelocytes % 0; Reactive Lymphocytes 0
[2021-01-11 05:28] LABS: Albumin 2.8 g/dL (3.4-5.0); Calcium 7.3 mg/dL (8.5-10.1); Magnesium 2.4 mg/dL (1.6-2.6); Potassium 4.2 mmol/L (3.5-5.1)
[2021-01-11 05:38] LABS: Bilirubin, Total 3.1 mg/dL (0.2-1.0); Total Protein 6.6 g/dL (6.4-8.2)
[2021-01-11] MEDS: METOCLOPRAMIDE HCL 5MG/ml INJ 2ml VIAL IV SCH ×3 (06:00→21:23)
[2021-01-11] MEDS: ACCU-CHEK COMFORT CURVE STRIP VI SCH ×6 (06:07→21:20)
[2021-01-11] MEDS: InsuLIN REG 1unit/0.01ml Soln (100units/ml) SC SCH ×6 (06:08→21:21)
[2021-01-11] MEDS: INSULIN LANTUS (GLARGINE) 1 /0.01ml (100units/ml) SC SCH ×2 (06:11→21:24)
[2021-01-11 07:05] LABS: Band Neutrophils % (manual) 34; Lymphocytes % (manual) 4 (10.0-50.0); Metamyelocytes % 2; Monocytes % (manual) 6 (0-12); Myelocytes % 3
[2021-01-11] MEDS: PROPOFOL 100 ML IV SCH (07:53)
[2021-01-11] MEDS: PHENYLEPHRINE IV 250 ML IV SCH ×3 (07:53→15:11)
[2021-01-11] MEDS: NOREPINEPHRINE 8 MG/250ML KIT 250 ML IV SCH (07:54)
[2021-01-11] MEDS: SODIUM BICARBONATE 50ML VIAL 50 ML in SOD CHL 0.45% 1,000 ML IV SCH (07:55)
[2021-01-11] MEDS: SILDENAFIL CITRATE 20 MG TAB PO SCH ×3 (08:29→21:20)
[2021-01-11] MEDS: FLUCONAZOLE 200MG/100ML 100 ML IV SCH (10:42)
[2021-01-11] MEDS: SODIUM CHLOR 0.9% PF (SALINE LOCK) 10ML VIAL/SYR IV SCH ×2 (10:42→21:24)
[2021-01-11] MEDS: ASPirin 81 mg TAB PO SCH (10:42)
[2021-01-11] MEDS: methylPREDNISolone SOD SUCC 40 MG/ML VL IV SCH ×2 (10:46→21:23)
[2021-01-11] MEDS: FAMOTIDINE (10MG/ML) 2ML VL IV SCH (10:46)
[2021-01-11] MEDS: NOREPINEPHRINE BITARTRATE 16 MG in SODIUM CHL 0.9% 234 ML IV SCH (11:08)
[2021-01-11] MEDS: fentaNYL Drip 2500mCg/250mlNS 250 ML IV SCH (11:25)
[2021-01-11] MEDS: MIDAZOLAM DRIP 50 mg/50mL 50 ML IV SCH ×2 (12:30→16:37)
[2021-01-11] MEDS: MEROPENEM 500MG IVPB 50 ML IV SCH ×2 (12:45)
[2021-01-11] MEDS: Nepro With Carb Steady 1 Liter Bottle GT SCH (13:19)
[2021-01-11] MEDS: VASOPRESSIN 50 UNITS in D5W 5% 247.5 ML IV SCH (14:15)
[2021-01-11] MEDS: SODIUM BICARBONATE 8.4 % INJ 50ML VIAL IV SCH (21:22)
[2021-01-12] VITALS (76 sets, daily range): BP systolic 82–156; BP diastolic 15–65
[2021-01-12] MEDS: MEROPENEM 500MG IVPB 50 ML IV SCH ×2 (00:23→12:06)
[2021-01-12] MEDS: ACCU-CHEK COMFORT CURVE STRIP VI SCH ×6 (00:25→20:45)
[2021-01-12] MEDS: InsuLIN REG 1unit/0.01ml Soln (100units/ml) SC SCH ×6 (01:06→20:46)
[2021-01-12] MEDS: INSULIN LANTUS (GLARGINE) 1 /0.01ml (100units/ml) SC SCH ×2 (07:05→21:55)
[2021-01-12] MEDS: METOCLOPRAMIDE HCL 5MG/ml INJ 2ml VIAL IV SCH ×3 (07:05→20:58)
[2021-01-12] MEDS: PHENYLEPHRINE IV 250 ML IV SCH ×3 (07:54→16:15)
[2021-01-12] MEDS: PROPOFOL 100 ML IV SCH (07:55)
[2021-01-12] MEDS: SILDENAFIL CITRATE 20 MG TAB PO SCH (09:00)
[2021-01-12] MEDS: ASPirin 81 mg TAB PO SCH (09:54)
[2021-01-12] MEDS: FLUCONAZOLE 200MG/100ML 100 ML IV SCH (09:54)
[2021-01-12] MEDS: methylPREDNISolone SOD SUCC 40 MG/ML VL IV SCH (09:54)
[2021-01-12] MEDS: SODIUM BICARBONATE 8.4 % INJ 50ML VIAL IV SCH ×2 (09:54→20:58)
[2021-01-12] MEDS: FAMOTIDINE (10MG/ML) 2ML VL IV SCH (09:54)
[2021-01-12] MEDS: SODIUM CHLOR 0.9% PF (SALINE LOCK) 10ML VIAL/SYR IV SCH ×2 (09:55→20:58)
[2021-01-12] MEDS: NOREPINEPHRINE BITARTRATE 16 MG in SODIUM CHL 0.9% 234 ML IV SCH ×2 (09:55→23:28)
[2021-01-12 10:17] LABS: Hematocrit 24.7 % (41.0-53.0); Hemoglobin 8.5 g/dL (13.5-17.5); Mean Corpuscular Hemoglobin 32.3 pg (28.0-32.0); Mean Corpuscular Hgb Conc. 34.4 g/dL (32.0-36.0); Mean Corpuscular Volume 93.8 fL (80.0-100.0); Red Blood Cells 2.64 10^6/uL (4.5-5.90); Red Cell Distribution Width 16.3 % (11.8-14.3)
[2021-01-12 10:25] LABS: White Blood Cell 41.1 10^3/uL (4.4-10.8)
[2021-01-12 10:27] LABS: Basophils % (manual) 0 (0.0-2.0); Blast Cells 0; Eosinophils % (manual) 0 (0-7); Reactive Lymphocytes 0
[2021-01-12 10:43] LABS: Band Neutrophils % (manual) 4; Lymphocytes % (manual) 8 (10.0-50.0); Metamyelocytes % 3; Monocytes % (manual) 7 (0-12); Myelocytes % 2; Promyelocytes % 2
[2021-01-12 10:45] LABS: Albumin 3.1 g/dL (3.4-5.0); Calcium 7.7 mg/dL (8.5-10.1); Potassium 4.2 mmol/L (3.5-5.1)
[2021-01-12 10:49] LABS: BUN/Creatinine Ratio 18.3; Bilirubin, Total 3.6 mg/dL (0.2-1.0); Total Protein 7.4 g/dL (6.4-8.2)
[2021-01-12] MEDS: fentaNYL Drip 2500mCg/250mlNS 250 ML IV SCH (11:50)
[2021-01-12] MEDS: Nepro With Carb Steady 1 Liter Bottle GT SCH (13:04)
[2021-01-12] MEDS: MIDAZOLAM DRIP 50 mg/50mL 50 ML IV SCH ×3 (13:40→21:56)
[2021-01-12] MEDS: VASOPRESSIN 50 UNITS in D5W 5% 247.5 ML IV SCH (14:32)
[2021-01-12] MEDS ORDERED: NITROGLYCERIN 0.4 MG SL TAB SL PRN (19:00)
[2021-01-13] VITALS (32 sets, daily range): BP systolic 41–120; BP diastolic 0–26
[2021-01-13] MEDS: MEROPENEM 500MG IVPB 50 ML IV SCH (01:16)
[2021-01-13] MEDS: ACCU-CHEK COMFORT CURVE STRIP VI SCH ×3 (01:16→08:00)
[2021-01-13] MEDS: InsuLIN REG 1unit/0.01ml Soln (100units/ml) SC SCH ×2 (01:17→06:23)
[2021-01-13] MEDS: MIDAZOLAM DRIP 50 mg/50mL 50 ML IV SCH ×2 (02:21→07:04)
[2021-01-13] MEDS: fentaNYL Drip 2500mCg/250mlNS 250 ML IV SCH (03:27)
[2021-01-13] MEDS: PROPOFOL 100 ML IV SCH (05:15)
[2021-01-13] MEDS: METOCLOPRAMIDE HCL 5MG/ml INJ 2ml VIAL IV SCH (06:12)
[2021-01-13] MEDS: INSULIN LANTUS (GLARGINE) 1 /0.01ml (100units/ml) SC SCH (06:23)
[2021-01-13 07:22] LABS: Hemoglobin 7.3 g/dL (13.5-17.5)
[2021-01-13 07:26] LABS: Mean Corpuscular Hemoglobin 32.3 pg (28.0-32.0); Mean Corpuscular Hgb Conc. 33.1 g/dL (32.0-36.0); Mean Corpuscular Volume 97.5 fL (80.0-100.0); Red Blood Cells 2.26 10^6/uL (4.5-5.90); Red Cell Distribution Width 16.4 % (11.8-14.3)
[2021-01-13 07:36] LABS: BUN/Creatinine Ratio 20.6; Calcium 7.5 mg/dL (8.5-10.1); Potassium 5.4 mmol/L (3.5-5.1)
[2021-01-13 07:44] LABS: Basophils % (manual) 0 (0.0-2.0); Eosinophils % (manual) 0 (0-7); Reactive Lymphocytes 0
[2021-01-13] MEDS: SODIUM CHLOR 0.9% PF (SALINE LOCK) 10ML VIAL/SYR IV SCH (10:00)
[2021-01-13] MEDS: SODIUM BICARBONATE 8.4 % INJ 50ML VIAL IV SCH (10:00)
[2021-01-13] MEDS: FAMOTIDINE (10MG/ML) 2ML VL IV SCH (10:00)
[2021-01-13] MEDS: FLUCONAZOLE 200MG/100ML 100 ML IV SCH (10:00)
[2021-01-13] MEDS: ASPirin 81 mg TAB PO SCH (10:00)
[2021-01-13 10:12] LABS: Band Neutrophils % (manual) 11; Blast Cells 1; Lymphocytes % (manual) 3 (10.0-50.0); Metamyelocytes % 2; Monocytes % (manual) 6 (0-12); Myelocytes % 8; Promyelocytes % 4
[2021-01-13 10:18] LABS: White Blood Cell 45.6 10^3/uL (4.4-10.8)
[2021-01-13] MEDS ORDERED: VANCOMYCIN 1GM/250ML 250 ML IV ONE (13:45)
[2021-01-13] MEDS ORDERED: methylPREDNISolone SOD SUCC 40 MG/ML VL IV SCH (14:00)
[2021-01-13] MEDS ORDERED: NITROGLYCERIN 0.4 MG SL TAB SL PRN (21:00)
== END 2021-01-13 14:50 | DRG 207 ==
LOC: EDBD 17:09 → ER 17:09 → TELE 21:55 → TELE-CENTR 12-17 05:27 → DOU IN ICU 12-18 15:51 → TELE-CENTR 12-22 23:21 → DOU IN ICU 12-25 16:00
PROVIDERS: ADMIT Hospitalist; ATTEND Internal Medicine
PROC: 5A09357 Assistance with Respiratory Ventilation, Less than 24 Consecutive Hours, Continuous Positive Airway Pressure (ICD-10-PCS; 2020-12-17)
PROC: 5A1955Z Respiratory Ventilation, Greater than 96 Consecutive Hours (ICD-10-PCS; principal; 2020-12-18)
PROC: 0BH17EZ Insertion of Endotracheal Airway into Trachea, Via Natural or Artificial Opening (ICD-10-PCS; 2020-12-18)
PROC: 02HV33Z Insertion of Infusion Device into Superior Vena Cava, Percutaneous Approach (ICD-10-PCS; 2020-12-19)
PROC: B548ZZA Ultrasonography of Superior Vena Cava, Guidance (ICD-10-PCS; 2020-12-19)
PROC: 5A09457 Assistance with Respiratory Ventilation, 24-96 Consecutive Hours, Continuous Positive Airway Pressure (ICD-10-PCS; 2020-12-23)
PROC: 5A1955Z Respiratory Ventilation, Greater than 96 Consecutive Hours (ICD-10-PCS; 2020-12-25)
PROC: 0BH17EZ Insertion of Endotracheal Airway into Trachea, Via Natural or Artificial Opening (ICD-10-PCS; 2020-12-25)
PROC: 05HN33Z Insertion of Infusion Device into Left Internal Jugular Vein, Percutaneous Approach (ICD-10-PCS; 2020-12-25)
PROC: 5A1D70Z Performance of Urinary Filtration, Intermittent, Less than 6 Hours Per Day (ICD-10-PCS; 2020-12-25)
PROC: 5A1D70Z Performance of Urinary Filtration, Intermittent, Less than 6 Hours Per Day (ICD-10-PCS; 2020-12-28)
PROC: 02H633Z Insertion of Infusion Device into Right Atrium, Percutaneous Approach (ICD-10-PCS; 2020-12-30)
PROC: 5A1D70Z Performance of Urinary Filtration, Intermittent, Less than 6 Hours Per Day (ICD-10-PCS; 2020-12-30)
PROC: 0DH67UZ Insertion of Feeding Device into Stomach, Via Natural or Artificial Opening (ICD-10-PCS; 2021-01-01)
PROC: 5A1D70Z Performance of Urinary Filtration, Intermittent, Less than 6 Hours Per Day (ICD-10-PCS; 2021-01-02)
PROC: 5A1D70Z Performance of Urinary Filtration, Intermittent, Less than 6 Hours Per Day (ICD-10-PCS; 2021-01-04)
PROC: 5A1D70Z Performance of Urinary Filtration, Intermittent, Less than 6 Hours Per Day (ICD-10-PCS; 2021-01-06)
PROC: 5A1D70Z Performance of Urinary Filtration, Intermittent, Less than 6 Hours Per Day (ICD-10-PCS; 2021-01-08)
PROC: 5A1D70Z Performance of Urinary Filtration, Intermittent, Less than 6 Hours Per Day (ICD-10-PCS; 2021-01-10)
PROC: 5A1D70Z Performance of Urinary Filtration, Intermittent, Less than 6 Hours Per Day (ICD-10-PCS; 2021-01-12)
DX: J96.01 Acute respiratory failure with hypoxia (principal); N17.0 Acute kidney failure with tubular necrosis; G93.41 Metabolic encephalopathy; J15.6 Pneumonia due to other Gram-negative bacteria; A41.9 Sepsis, unspecified organism; I50.43 Acute on chronic combined systolic (congestive) and diastolic (congestive) heart failure; R65.21 Severe sepsis with septic shock; N18.6 End stage renal disease; J15.212 Pneumonia due to Methicillin resistant Staphylococcus aureus; E87.1 Hypo-osmolality and hyponatremia; J44.0 Chronic obstructive pulmonary disease with (acute) lower respiratory infection; I13.2 Hypertensive heart and chronic kidney disease with heart failure and with stage 5 chronic kidney disease, or end stage renal disease; E83.51 Hypocalcemia; E87.6 Hypokalemia; Z51.5 Encounter for palliative care; R57.0 Cardiogenic shock; Z66 Do not resuscitate; I25.10 Atherosclerotic heart disease of native coronary artery without angina pectoris; E11.22 Type 2 diabetes mellitus with diabetic chronic kidney disease; E66.9 Obesity, unspecified; Z98.61 Coronary angioplasty status; Z20.822 Contact with and (suspected) exposure to COVID-19; E78.5 Hyperlipidemia, unspecified; D63.8 Anemia in other chronic diseases classified elsewhere; D69.6 Thrombocytopenia, unspecified; E87.5 Hyperkalemia; I27.20 Pulmonary hypertension, unspecified; Z99.2 Dependence on renal dialysis
CPT/HCPCS: 36415; 36569; 36600; 71045; 74018; 76775; 80048; 80053; 81001; 82306; 82570; 82805; 82962; 83036; 83735; 83880; 83970; 84100; 84132; 84156; 84300; 84484; 85007; 85025; 85027; 85610; 85730; 86850; 86900; 86901; 87070; 87086; 87088; 87205; 87340; 87426; 87493; 87804; 90935; 93005; 93306; 94002; 94003; 94618; 94640; 94660; 96365; 96368; 96375; G0378; G0463; J0330; J0696; J1450; J1642; J1815; J2185; J2250; J2405; J2543; J2704; J3480; J3490; J7060; P9047